=== PATIENT | female | born 1935 | race Caucasian/White ===

== ENCOUNTER → 2017-02-04 | Outpatient (CLI) | payer MEDICARE, OTHER ==
[~2017-02-04] MED LIST: ALBU0.632 IH; DIPH1TAB45 PO; LANS15CA PO; LVT.05T PO; MULT-608 PO; PRD20T PO; SIMV20TA3 PO
--- NOTE | 2017-02-04 16:52 | Diagnostic Imaging Report ---
PROCEDURE: US Carotid Duplex Bilateral. TECHNIQUE: Multiple real-time grayscale images were obtained over the carotid arteries in various projections bilaterally. Additional duplex Doppler and color Doppler images were also obtained. INDICATION: Carotid Bruit. FINDINGS: There are no prior studies available for comparison. There is a moderate amount of hard and soft plaque formation in both carotid bifurcations. The flow velocities failed to show any sign of a hemodynamically significant stenosis, however. The flow velocities are as follows: Mid CCA: Right 66.4, left 71.5. Proximal ICA: Right 41.3, left 47.9. Mid ICA: Right 48.7, left 65.2. Distal ICA: Right 80.1, left 49.1. IC/CC ratio: Right 1.2, left 0.9. Both vertebral arteries are identified and there is antegrade flow bilaterally. IMPRESSION: There is atherosclerotic disease involving both carotid systems, but there is no evidence for a hemodynamically significant stenosis of the common or internal carotid arteries. Dictated by: Dictated on workstation # [id number]
== END ==
LOC: RAD 10:19
PROVIDERS: ATTEND Nurse Practitioner Family
DX: R09.89 Other specified symptoms and signs involving the circulatory and respiratory systems (principal); I65.23 Occlusion and stenosis of bilateral carotid arteries
CPT/HCPCS: 93880

== ENCOUNTER 2017-04-28 13:14 | Outpatient (RCR) | payer MEDICARE, OTHER ==
[2017-04-18 08:36] LABS: BASOPHILS # (AUTO) 0.1 10^3/uL (0.0-0.1); BASOPHILS % (AUTO) 1 % (0-10); EOSINOPHILS # (AUTO) 0.7 10^3/uL (0.0-0.3); EOSINOPHILS % (AUTO) 12 % (0-10); LYMPHOCYTES # (AUTO) 1.1 X 10^3 (1.0-4.0); LYMPHOCYTES % (AUTO) 18 % (12-44); MEAN CORPUSCULAR HEMOGLOBIN 31 PG (25-34); MEAN CORPUSCULAR HGB CONC 33 G/DL (32-36); MEAN CORPUSCULAR VOLUME 93 FL (80-99); MEAN PLATELET VOLUME 10.3 FL (7.4-10.4); MONOCYTES # (AUTO) 0.5 X 10^3 (0.0-1.0); MONOCYTES % (AUTO) 9 % (0-12); NEUTROPHILS # (AUTO) 3.6 X 10^3 (1.8-7.8); NEUTROPHILS % (AUTO) 60 % (42-75); PLATELET COUNT 238 10^3/uL (130-400); RED BLOOD COUNT 4.53 10^6/uL (4.35-5.85); RED CELL DISTRIBUTION WIDTH 12.7 % (10.0-14.5)
[2017-04-18 08:58] LABS: ALANINE AMINOTRANSFERASE 12 U/L (0-55); ALBUMIN 4.4 G/DL (3.2-4.5); ANION GAP 10 MMOL/L (5-14); ASPARTATE AMINO TRANSFERASE 18 U/L (5-34); BILIRUBIN,TOTAL 0.6 MG/DL (0.1-1.0); BLOOD UREA NITROGEN 16 MG/DL (7-18); BUN/CREATININE RATIO 19; CALCIUM 9.3 MG/DL (8.5-10.1); CARBON DIOXIDE 25 MMOL/L (21-32); CHLORIDE 107 MMOL/L (98-107); CREATININE SERUM 0.84 MG/DL (0.60-1.30); GFR ESTIMATED > 60; GLUCOSE 102 MG/DL (70-105); POTASSIUM 3.9 MMOL/L (3.6-5.0); SODIUM 142 MMOL/L (135-145); TOTAL PROTEIN 6.4 G/DL (6.4-8.2)
== END 2017-07-17 | disposition home or self-care (01) ==
LOC: ONC 13:14
PROVIDERS: ATTEND Internal Medicine Hematology & Oncology
DX: Z08 Encounter for follow-up examination after completed treatment for malignant neoplasm (principal); Z85.038 Personal history of other malignant neoplasm of large intestine; N18.3 Chronic kidney disease, stage 3 (moderate); Z79.82 Long term (current) use of aspirin; Z79.899 Other long term (current) drug therapy; Z90.49 Acquired absence of other specified parts of digestive tract
CPT/HCPCS: 36415; 80053; 82378; 85025; 99213

== ENCOUNTER → 2017-05-03 | Outpatient (CLI) | payer MEDICARE, OTHER ==
[~2017-05-03] MED LIST changes: +BARIUM SUSPENSION 2.1% (VANILLA SILQ) 450 ML PO ONE; +CATHETER FLUSH 10 ML SYR IV PRN; +IOHEXOL 350 MG/ML 100 ML (OMNIPAQUE 350) VIAL IV ONE; +NS 100 ML (IVPB) BAG IV ONE
--- NOTE | 2017-05-03 13:11 | Diagnostic Imaging Report ---
PROCEDURE: CT abdomen and pelvis with contrast. TECHNIQUE: Multiple contiguous axial images were obtained through the abdomen and pelvis after administration of intravenous contrast. INDICATION: History of colon cancer. COMPARISON: Exam compared with study from 03/31/2012. FINDINGS: The lung bases are clear. Left hepatic lobe cyst measuring 11 mm is unchanged from prior. No new, solid, or enhancing liver mass. No biliary ductal dilatation. Previous pneumobilia has resolved in the interim. Spleen is negative. There is a small hiatal hernia. There is no adrenal mass. The pancreas is normal. There are no findings of acute pancreatitis, atrophy, fluid collection, or calcifications. There is no abdominal or pelvic mesenteric or retroperitoneal lymphadenopathy. The unobstructed kidneys are normal. There is a small hiatal hernia. The spleen is unremarkable. There is no adrenal mass. There is no ascites. There are postoperative changes to the left lower quadrant abdominal wall without evidence for recurrent hernia. There is profound diverticulosis at the sigmoid colon, but no convincing evidence for acute perisigmoidal edema or acute diverticulitis. There is no abscess or free air. There is no suspicious bone lesion. No evidence for hemorrhage. No free air or pneumatosis. IMPRESSION: Stable benign hepatic cysts. No lymphadenopathy. Severe chronic diverticulosis at the sigmoid. No bowel, biliary, or urinary tract obstruction, and no ascites, fluid collection, or adenopathy. Dictated by: Dictated on workstation # [id number]
== END ==
LOC: RAD 08:42
PROVIDERS: ATTEND Internal Medicine Hematology & Oncology
DX: R10.9 Unspecified abdominal pain (principal); Z85.038 Personal history of other malignant neoplasm of large intestine; K76.89 Other specified diseases of liver
CPT/HCPCS: 74177

== ENCOUNTER → 2017-08-30 | Outpatient (CLI) | payer MEDICARE, OTHER ==
[~2017-08-30] MED LIST changes: -BARIUM SUSPENSION 2.1% (VANILLA SILQ) 450 ML PO ONE; -CATHETER FLUSH 10 ML SYR IV PRN; -IOHEXOL 350 MG/ML 100 ML (OMNIPAQUE 350) VIAL IV ONE; -NS 100 ML (IVPB) BAG IV ONE
== END ==
LOC: RAD 08:30
PROVIDERS: ATTEND Nurse Practitioner Family
DX: M54.5 Low back pain (principal); M25.551 Pain in right hip
CPT/HCPCS: 72100; 73502

== ENCOUNTER → 2017-09-21 | Outpatient (CLI) | payer MEDICARE, OTHER ==
--- NOTE | 2017-09-21 11:59 | Diagnostic Imaging Report ---
EXAMINATION: Upper and lower extremity pressure measurements of ankle/brachial index and pulse volume recording at the ankle. INDICATION: Claudication FINDINGS: The ankle/brachial index on the right side is 1.2, (1.2 PT, and 1.0 DP) and on the left is 1.2 (1.2 PT, and 1.1 DP). Pulse volume recording waveforms no significant abnormality. IMPRESSION: Normal JAMIE, bilaterally. Dictated by: Dictated on workstation # [id number]
== END ==
LOC: RAD 10:45
PROVIDERS: ATTEND Nurse Practitioner Family
DX: I73.9 Peripheral vascular disease, unspecified (principal)
CPT/HCPCS: 93922

== ENCOUNTER 2017-10-18 09:33 | Outpatient (RCR) | payer MEDICARE, OTHER | END 2017-10-18 10:59 | disposition home or self-care (01) | PROVIDERS: ATTEND Nurse Practitioner Family | DX: M47.896 Other spondylosis, lumbar region (principal) ==

== ENCOUNTER 2018-05-25 10:10 | Outpatient (RCR) | payer MEDICARE, OTHER | END 2018-08-23 | disposition home or self-care (01) | LOC: ONC 10:10 | PROVIDERS: ATTEND Internal Medicine Hematology & Oncology | DX: Z08 Encounter for follow-up examination after completed treatment for malignant neoplasm (principal); Z85.038 Personal history of other malignant neoplasm of large intestine; K57.30 Diverticulosis of large intestine without perforation or abscess without bleeding; I12.9 Hypertensive chronic kidney disease with stage 1 through stage 4 chronic kidney disease, or unspecified chronic kidney disease; N18.3 Chronic kidney disease, stage 3 (moderate); E03.9 Hypothyroidism, unspecified; E78.00 Pure hypercholesterolemia, unspecified; Z79.82 Long term (current) use of aspirin; Z79.899 Other long term (current) drug therapy; Z90.49 Acquired absence of other specified parts of digestive tract | CPT/HCPCS: 99213 ==

== ENCOUNTER → 2018-09-28 | Outpatient (CLI) | payer MEDICARE, OTHER ==
--- NOTE | 2018-09-28 18:17 | Diagnostic Imaging Report ---
INDICATION: Left shoulder pain. AP, oblique, and lateral views of the left shoulder are obtained. No fracture or dislocation is seen. There is no acute bony abnormality. There is no overt lytic or blastic lesion. IMPRESSION: Negative left shoulder. Dictated by: Dictated on workstation # [id number]
== END ==
LOC: RAD 16:11
PROVIDERS: ATTEND Nurse Practitioner Family
DX: M25.512 Pain in left shoulder (principal)
CPT/HCPCS: 73030

== ENCOUNTER 2020-05-20 10:34 | Emergency (ER) | payer MEDICARE, OTHER ==
[~2020-05-20] VITALS: Ht 160 cm; Wt 53.9 kg
--- NOTE | 2020-05-20 11:06 | ED Neurological Problem ---
General Chief Complaint: Neurological Problems Stated Complaint: STROKE SYMPTOMS Nursing Triage Note: PT AMB TO ROOM #5 WITH C/O EPISODE OF BILAT LOWER EXTREMITIY WEAKNESS. PT REPORTS 30 MINUTES MUCK BOSS WHILE SEATED ON HER BAR STOOL, SHE ATTEMPTED TO STAND UP ET WAS UNABLE TO WALK. PT STATES, "I COULDNT MOVE MY LEGS." PT REPORTS EPISODE LASTED "A COUPLE SECONDS," ET WAS THEN ABLE TO AMBULATE W/O DIFFICULTY. PT REPORTS AFTER EPISODE SHE EXPERIENCED HEADACHE TO BASE OF SKULL ET BLURRED VISION. PT DENIES BLURRED VISION, PAIN, OR DISCOMFORT AT THIS TIME. INITIAL NIH 1. HX PARALYZED VOCAL CORD. A&OX4. Nursing Sepsis Screen: No Definite Risk Source: patient Exam Limitations: no limitations History of Present Illness Date Seen by Provider: May 20, 2020 Time Seen by Provider: 11:02 Initial Comments To ER with bilateral lower extremity weakness. This began about 10 AM this morning while she was seated on her barstool at home, she attempted to stand up but states her legs didn't want to move. She also had a left occipital headache. The inability to move her legs lasted only a few seconds, she did have some blurred vision left occipital headache and currently reports just general fatigue. No history of this. She does report some numbness to the plantar surface of both feet. Timing/Duration: 1 hour Severity: moderate Associated Symptoms: No confusion, No nausea/vomiting; trouble walking, vision changes, weakness Allergies and Home Medications Allergies Coded Allergies: NKANo Known Allergies (Verified Allergy, Unknown, 03/10/06) Diphenoxylate HCl (Verified Adverse Reaction, Mild, Vomiting, 11/30/11) Iodinated Contrast Media - Oral and (Verified Adverse Reaction, Mild, 11/05/11) atropine sulfate (Verified Adverse Reaction, Mild, Vomiting, 11/30/11) clarithromycin (Verified Adverse Reaction, Mild, 11/05/11) doxycycline (Verified Adverse Reaction, Mild, N/V, 11/05/11) niacin (Verified Adverse Reaction, Mild, rash, 11/05/11) promethazine HCl (Unverified Adverse Reaction, Unknown, MADE HER CRAZY , 05/03/17) Home Medications Albuterol Sulfate 0.63 Mg/3 Ml Vial.neb, 0.83 MG IH PRN, (Reported) Levothyroxine Sodium 50 Mcg Tablet, 1 EACH PO DAILY, (Reported) Multivitamins 1 Tab Tablet, 1 TAB PO DAILY, (Reported) Prednisone 20 Mg Tab, 20 MG PO BID Prescribed by: VERA HERNANDEZ on 04/19/13 0041 Simvastatin 20 Mg Tablet, 20 MG PO HS, (Reported) Patient Home Medication List Home Medication List Reviewed: Yes Review of Systems Review of Systems Constitutional: No chills, No fever Eyes: No Symptoms Reported Ears, Nose, Mouth, Throat: no symptoms reported Respiratory: no symptoms reported Cardiovascular: no symptoms reported Genitourinary: no symptoms reported Musculoskeletal: no symptoms reported Skin: no symptoms reported Psychiatric/Neurological: See HPI, Headache Endocrine: No Symptoms Reported Hematologic/Lymphatic: No Symptoms Reported Past Wbheviu-Tfqcbo-Jnopuz Hx Patient Social History Recent Foreign Travel: No Contact w/Someone Who Travel: No Recent Infectious Disease Expo: No Immunizations Up To Date Date of Pneumonia Vaccine: Aug 25, 2009 Date of Influenza Vaccine: Aug 30, 2011 Past Medical History Reproductive Disorders: No Pancreatitis Colon Physical Exam Vital Signs Vital Signs - First Documented 05/20/20 10:34 Temp 36.5 Pulse 83 Resp 18 B/P (MAP) 168/87 (114) Pulse Ox 98 O2 Delivery Room Air Capillary Refill : NONE Height, Weight, BMI Height: '" Weight: lbs. oz. kg; 21.00 BMI Method:Stated General Appearance: WD/WN, no apparent distress HEENT: PERRL/EOMI, normal ENT inspection Neck: non-tender, full range of motion Respiratory: normal breath sounds, no respiratory distress, no accessory muscle use Cardiovascular: regular rate, rhythm, no murmur Gastrointestinal: normal bowel sounds, non tender, soft Neurologic/Psychiatric: alert, normal mood/affect, oriented x 3 Crainal Nerves: normal hearing, normal speech, PERRL Skin: normal color, warm/dry Stroke Onset of Symptoms Date of Onset of Symptoms: May 20, 2020 Time of Symptom Onset: 10:00 Onset of Symptoms: Yes NIH Stroke Scale Assessment Select: Initial Level of Consciousness: 0=Alert (0), Level of Consciousness-Questions: 0=Answers both month/age (0), LOC Commands: 0=Performs both tasks (0), Gaze: Normal (0), Visual Serra: 0=No visual loss (0), Facial Movement (Facial Paresis): 0=Normal symmetrical mnt (0), Motor Function-Arms Right: 0=No drift (0), Motor Function-Arms Left: 0=No drift (0), Motor Function-Legs Right: 0=No drift (0), Motor Function-Legs Left: 0=No drift (0), Limb Ataxia: 0=Absent (0), Sensory: 0=Normal:no loss (0), Best Language: 0=No aphasia (0), Dysarthria: 0=Normal (0), Extinction & In attention: 0=No abnormality (0), Total: 0 Progress/Results/Core Measures Results/Orders Lab Results Laboratory Tests Test 05/20/20 10:40 05/20/20 11:30 Range/Units White Blood Count 4.7 4.3-11.0 10^3/uL Red Blood Count 4.59 4.35-5.85 10^6/uL Hemoglobin 14.5 11.5-16.0 G/DL Hematocrit 43 35-52 % Mean Corpuscular Volume 93 80-99 FL Mean Corpuscular Hemoglobin 32 25-34 PG Mean Corpuscular Hemoglobin Concent 34 32-36 G/DL Red Cell Distribution Width 13.2 10.0-14.5 % Platelet Count 262 130-400 10^3/uL Mean Platelet Volume 10.5 H 7.4-10.4 FL Neutrophils (%) (Auto) 54 42-75 % Lymphocytes (%) (Auto) 24 12-44 % Monocytes (%) (Auto) 15 H 0-12 % Eosinophils (%) (Auto) 7 0-10 % Basophils (%) (Auto) 1 0-10 % Neutrophils # (Auto) 2.5 1.8-7.8 X 10^3 Lymphocytes # (Auto) 1.1 1.0-4.0 X 10^3 Monocytes # (Auto) 0.7 0.0-1.0 X 10^3 Eosinophils # (Auto) 0.4 H 0.0-0.3 10^3/uL Basophils # (Auto) 0.0 0.0-0.1 10^3/uL Prothrombin Time 12.6 12.2-14.7 SEC INR Comment 0.9 0.8-1.4 Activated Partial Thromboplast Time 29 24-35 SEC D-Dimer 0.54 H 0.00-0.49 UG/ML Sodium Level 140 135-145 MMOL/L Potassium Level 4.0 3.6-5.0 MMOL/L Chloride Level 105 98-107 MMOL/L Carbon Dioxide Level 23 21-32 MMOL/L Anion Gap 12 5-14 MMOL/L Blood Urea Nitrogen 12 7-18 MG/DL Creatinine 0.85 0.60-1.30 MG/DL Estimat Glomerular Filtration Rate > 60 BUN/Creatinine Ratio 14 Glucose Level 98 70-105 MG/DL Calcium Level 9.5 8.5-10.1 MG/DL Corrected Calcium 9.1 8.5-10.1 MG/DL Total Bilirubin 0.6 0.1-1.0 MG/DL Aspartate Amino Transf (AST/SGOT) 20 5-34 U/L Alanine Aminotransferase (ALT/SGPT) 16 0-55 U/L Alkaline Phosphatase 58 40-136 U/L Troponin I < 0.028 <0.028 NG/ML Total Protein 6.8 6.4-8.2 GM/DL Albumin 4.5 3.2-4.5 GM/DL Urine Color YELLOW Urine Clarity SL CLOUDY Urine pH 6.5 5-9 Urine Specific Daggett <=1.005 1.016-1.022 Urine Protein NEGATIVE NEGATIVE Urine Glucose (UA) NEGATIVE NEGATIVE Urine Ketones NEGATIVE NEGATIVE Urine Nitrite NEGATIVE NEGATIVE Urine Bilirubin NEGATIVE NEGATIVE Urine Urobilinogen 0.2 < = 1.0 MG/DL Urine Leukocyte Esterase NEGATIVE NEGATIVE Urine RBC (Auto) NEGATIVE NEGATIVE Urine RBC NONE /HPF Urine WBC RARE /HPF Urine Squamous Epithelial Cells RARE /HPF Urine Crystals PRESENT H /LPF Urine Amorphous Sediment RARE NII URATES H /LPF Urine Bacteria NEGATIVE /HPF Urine Casts NONE /LPF Urine Mucus NEGATIVE /LPF Urine Culture Indicated NO My Orders Orders - GABRIEL WEBER APRN Ct Head/Cervical Spine Wo (05/20/20 11:01) Cbc With Automated Diff (05/20/20 11:01) Protime With Inr (05/20/20 11:01) Partial Thromboplastin Time (05/20/20 11:01) Comprehensive Metabolic Panel (05/20/20 11:01) Fibrin Degradation Products (05/20/20 11:01) Troponin I (05/20/20 11:01) Ua Culture If Indicated (05/20/20 11:01) Chest 1 View, Ap/Pa Only (05/20/20 11:01) Ekg Tracing (05/20/20 11:01) Ed Iv/Invasive Line Start (05/20/20 11:01) Vital Signs Stroke Patient Q15M (05/20/20 11:01) Monitor-Rhythm Ecg Trace Only (05/20/20 11:01) Dysphagia Screening Tool (05/20/20 11:01) Lipid Panel (05/21/20 06:00) Vital Signs/I&O 05/20/20 10:34 Temp 36.5 Pulse 83 Resp 18 B/P (MAP) 168/87 (114) Pulse Ox 98 O2 Delivery Room Air Blood Pressure Mean: 114 Departure Impression Primary Impression: transient bilateral lower extremity weakness Additional Impression: Meningioma Disposition: HOME, SELF-CARE Condition: Stable Departure-Patient Inst. Decision time for Depature: 11:51 Referrals: SONNY PERLA MD (PCP/Family) Primary Care Physician Patient Instructions: Meningioma (DC) Add. Discharge Instructions: You have a small meningioma on the right frontal/parietal aspect of the brain. This is an incidental finding and not the cause of her symptoms. Follow-up with Dr. Perla. All discharge instructions reviewed with patient and/or family. Voiced understanding. Copy Copies To 1: SONNY PERLA MD, PETER J APRN May 20, 2020 11:06
[2020-05-20 11:08] LABS: BASOPHILS % (AUTO) 1 % (0-10); EOSINOPHILS # (AUTO) 0.4 10^3/uL (0.0-0.3); EOSINOPHILS % (AUTO) 7 % (0-10); HEMATOCRIT 43 % (35-52); HEMOGLOBIN 14.5 G/DL (11.5-16.0); LYMPHOCYTES # (AUTO) 1.1 X 10^3 (1.0-4.0); LYMPHOCYTES % (AUTO) 24 % (12-44); MEAN CORPUSCULAR HEMOGLOBIN 32 PG (25-34); MEAN CORPUSCULAR HGB CONC 34 G/DL (32-36); MEAN CORPUSCULAR VOLUME 93 FL (80-99); MEAN PLATELET VOLUME 10.5 FL (7.4-10.4); MONOCYTES # (AUTO) 0.7 X 10^3 (0.0-1.0); MONOCYTES % (AUTO) 15 % (0-12); NEUTROPHILS # (AUTO) 2.5 X 10^3 (1.8-7.8); NEUTROPHILS % (AUTO) 54 % (42-75); PLATELET COUNT 262 10^3/uL (130-400); RED CELL DISTRIBUTION WIDTH 13.2 % (10.0-14.5); WHITE BLOOD COUNT 4.7 10^3/uL (4.3-11.0)
[2020-05-20 11:12] LABS: ALBUMIN 4.5 GM/DL (3.2-4.5); CHLORIDE 105 MMOL/L (98-107)
[2020-05-20 11:13] LABS: SODIUM 140 MMOL/L (135-145)
[2020-05-20 11:14] LABS: CALCIUM 9.5 MG/DL (8.5-10.1); FIBRIN DEGRADATION PRODUCTS 0.54 UG/ML (0.00-0.49); INR 0.9 (0.8-1.4); PROTHROMBIN TIME PATIENT 12.6 SEC (12.2-14.7)
[2020-05-20 11:15] LABS: GLUCOSE 98 MG/DL (70-105); TOTAL PROTEIN 6.8 GM/DL (6.4-8.2)
[2020-05-20 11:16] LABS: CARBON DIOXIDE 23 MMOL/L (21-32)
[2020-05-20 11:17] LABS: BILIRUBIN,TOTAL 0.6 MG/DL (0.1-1.0)
[2020-05-20 11:18] LABS: ALKALINE PHOSPHATASE 58 U/L (40-136); CREATININE SERUM 0.85 MG/DL (0.60-1.30); GFR ESTIMATED > 60
[2020-05-20 11:20] LABS: BUN/CREATININE RATIO 14
[2020-05-20 11:21] LABS: ALANINE AMINOTRANSFERASE 16 U/L (0-55)
[2020-05-20 11:37] LABS: BILIRUBIN,URINE NEGATIVE (NEGATIVE); CLARITY,URINE SL CLOUDY; COLOR,URINE YELLOW; GLUCOSE, URINE (UA) NEGATIVE (NEGATIVE); KETONES,URINE NEGATIVE (NEGATIVE); LEUKOCYTE ESTERASE ,URINE NEGATIVE (NEGATIVE); NITRITE,URINE NEGATIVE (NEGATIVE); PH,URINE 6.5 (5-9); PROTEIN,URINE NEGATIVE (NEGATIVE)
--- NOTE | 2020-05-20 11:45 | Diagnostic Imaging Report ---
Clinical indication: Patient sitting at bar stool this morning and legs would not work. Patient did not fall. Patient is having neck pain at the base of skull and has history of cervical surgery. Exam: Axial Head CT without IV contrast with sagittal and coronal reformations. Axial CT scan of the cervical spine with sagittal and coronal reformations. Auto Exposure Controls were utilized during the CT exam to meet ALARA standards for radiation dose reduction. Comparison: None. Findings: Head CT: There is a 1.5 cm x 1.1 cm x 1.6 cm (AP x Trans x CC) circumscribed dural based mass along the lateral posterior aspect of the right frontal parietal region. There is no adjacent calvarial changes. Otherwise, there is no evidence of acute cerebral infarct, intracranial hemorrhage, or gross mass effect. There is diffuse brain parenchymal volume loss with the frontal lobe affected the most. There is subtle patchy areas of low-attenuation white matter changes involving both cerebral hemispheres, likely representing chronic small vessel ischemic disease. There is normal diaz-white matter distinction. There is no significant midline shift or herniation. There is no evidence of hydrocephalus. The basal cisterns are unremarkable. There is no acute skull fracture. There is a chronic medial left orbital wall deformity with orbital fat extending through the left ethmoid sinus region. Otherwise, the skull, extracranial soft tissue, and remainder of the orbits are unremarkable. The paranasal sinuses are unremarkable. Temporal bones show no significant abnormality. Cervical spine: There is no acute cervical spine fracture. There is grade 1 anterolisthesis C2 on C3, C3 on C4 and C4 on C5 likely degenerative with no pars defects seen. There are postop changes with C5-C6 anterior cervical disc fusion with no hardware complications. There is solid bony bridging/fusion at C5-C6 level. There is no significant bony central canal or neural foramen narrowing. The neck soft tissue structures show no significant abnormality. Visualized upper lung rock show mild bilateral apical pleural parenchymal thickening/scarring. Impression: 1: There is a 1.6 cm high density area which appears to be dural based involving the lateral posterior aspect of the right frontal parietal convexity region. This is suspected to represent a meningioma. If patient has no prior history of having a hemangioma, then MRI of the brain with and without IV contrast would confirm and exclude other etiology. 2: Otherwise, there is no evidence of intracranial hemorrhage or skull fracture. 3: There is no acute cervical spine fracture. There is cervical spine degenerative disease including grade 1 anterolisthesis of C2 on C3, C3 on C4 and C4 on C5. 4: There is C5-C6 anterior cervical disc fusion hardware with no complications. There is solid bony bridging/fusion at C5-C6 level. Dictated by: Dictated on workstation # [id number]
--- NOTE | 2020-05-20 11:46 | Diagnostic Imaging Report ---
INDICATION: Lower extremity weakness. TIME OF EXAM: 11:29 AM Comparison is made with prior chest from 07/21/2016. FINDINGS: Heart size is normal. Lungs are clear. No infiltrates are seen. There is no effusion or pneumothorax. Postop changes lower cervical spine are noted. IMPRESSION: No acute cardiopulmonary process is detected. Dictated by: Dictated on workstation # [id number]
[2020-05-20 11:47] LABS: AMORPHOUS SEDIMENT,UR RARE AMOR URATES /LPF; BACTERIA,URINE NEGATIVE /HPF; SQUAMOUS EPITHELIAL CELL,UR RARE /HPF; WBC,URINE RARE /HPF
[2020-05-20 11:55] VITALS: BP 152/75
== END 2020-05-20 11:55 | disposition home or self-care (01) ==
LOC: EDUNIT# 10:34 → ER 10:35
DX: D32.9 Benign neoplasm of meninges, unspecified (principal); Z91.041 Radiographic dye allergy status; Z88.8 Allergy status to other drugs, medicaments and biological substances; Z88.1 Allergy status to other antibiotic agents; Z79.52 Long term (current) use of systemic steroids
CPT/HCPCS: 36415; 70450; 71045; 72125; 80053; 81000; 84484; 85025; 85379; 85610; 85730; 93005; 93041

== ENCOUNTER → 2020-06-09 | Outpatient (CLI) | payer MEDICARE, OTHER ==
--- NOTE | 2020-06-09 13:03 | Diagnostic Imaging Report ---
PROCEDURE: US carotid duplex, bilateral. TECHNIQUE: Multiple real-time grayscale images were obtained over the carotid arteries in various projections, bilaterally. Additional spectral analysis and color Doppler duplex images were also obtained. INDICATION: Transient ischemic attacks. FINDINGS: There is vgbh-ao-gtrrgyja plaquing in both common carotid arteries and carotid bulbs extending into the proximal internal carotid arteries bilaterally. Velocities are normal bilaterally, however. No velocity elevation or stenosis is seen. Both vertebral arteries show antegrade flow. IMPRESSION: Bilateral carotid plaques. There is no evidence of a hemodynamically significant stenosis. Parameters based on the consensus panel Dillon-Scale and Doppler ultrasound criteria published September 2003, Radiology, Volume 229. DOPPLER (peak systolic velocity M/S Right Left CCA 0.66 0.86 ICA Proximal 0.56 0.58 ICA Mid 0.54 0.79 ICA Distal 0.42 0.68 RATIO 0.9 0.9 ECA 1.03 1.00 VERT 0.46 0.39 Dictated by: Dictated on workstation # [id number]
== END ==
LOC: CARD 11:27
PROVIDERS: ATTEND Nurse Practitioner Family
DX: I08.2 Rheumatic disorders of both aortic and tricuspid valves (principal); G45.9 Transient cerebral ischemic attack, unspecified
CPT/HCPCS: 93306; 93880

== ENCOUNTER → 2020-06-12 | Outpatient (CLI) | payer MEDICARE, OTHER ==
[2020-06-12 09:04] LABS: BASOPHILS % (AUTO) 1 % (0-10); EOSINOPHILS # (AUTO) 0.2 10^3/uL (0.0-0.3); EOSINOPHILS % (AUTO) 3 % (0-10); HEMATOCRIT 41 % (35-52); LYMPHOCYTES # (AUTO) 1.4 X 10^3 (1.0-4.0); LYMPHOCYTES % (AUTO) 22 % (12-44); MEAN CORPUSCULAR HEMOGLOBIN 32 PG (25-34); MEAN CORPUSCULAR HGB CONC 34 G/DL (32-36); MEAN CORPUSCULAR VOLUME 94 FL (80-99); MEAN PLATELET VOLUME 10.2 FL (7.4-10.4); MONOCYTES # (AUTO) 0.7 X 10^3 (0.0-1.0); MONOCYTES % (AUTO) 10 % (0-12); NEUTROPHILS # (AUTO) 4.1 X 10^3 (1.8-7.8); NEUTROPHILS % (AUTO) 64 % (42-75); PLATELET COUNT 241 10^3/uL (130-400); RED CELL DISTRIBUTION WIDTH 12.9 % (10.0-14.5); WHITE BLOOD COUNT 6.4 10^3/uL (4.3-11.0)
[2020-06-12 09:24] LABS: ALBUMIN 4.4 GM/DL (3.2-4.5); BILIRUBIN,TOTAL 0.6 MG/DL (0.1-1.0); CALCIUM 9.4 MG/DL (8.5-10.1); CREATININE SERUM 0.89 MG/DL (0.60-1.30); POTASSIUM 3.9 MMOL/L (3.6-5.0); TOTAL PROTEIN 6.6 GM/DL (6.4-8.2)
== END ==
LOC: EDSTATUS 08-21 08:17 → ONC 08:53
PROVIDERS: ATTEND Internal Medicine Hematology & Oncology
DX: C18.7 Malignant neoplasm of sigmoid colon (principal); Z90.49 Acquired absence of other specified parts of digestive tract; Z87.19 Personal history of other diseases of the digestive system
CPT/HCPCS: 80053; 82378; 85025; G0463; 99213

== ENCOUNTER → 2020-10-03 | Outpatient (CLI) | payer MEDICARE, OTHER ==
[~2020-10-03] MED LIST changes: +ASPI-999 PO; +CLOP75TA28 PO; +CLOP75TA69 PO; +METO50TA7 PO; +RIVA20TA PO
== END ==
LOC: LABNPT 09:01
PROVIDERS: ATTEND Family Medicine
DX: R53.83 Other fatigue (principal); Z20.828 Contact with and (suspected) exposure to other viral communicable diseases
CPT/HCPCS: 87635

== ENCOUNTER 2020-10-07 21:37 | Inpatient (IN) | payer MEDICARE, OTHER ==
[~2020-10-07] VITALS: Ht 157 cm; Wt 60.3 kg
--- NOTE | 2020-10-07 21:50 | NUR ---
Pt denies pain but does report she had onset of palpitations while getting ready for bed. Pt had a cardiac stent placed last wk after she was brought to the ED for fatigue. Pt had an elevated troponin at that time. Pt is A&Ox4, she appears anxious about this stay. Reassurance provided. IV and labs drawn, ECG obtained. Pt on bedside monitor.
--- NOTE | 2020-10-07 21:52 | ED Cardiac General ---
History of Present Illness General Stated Complaint: ELEVATED HEART RATE Source: patient Exam Limitations: no limitations History of Present Illness Date Seen by Provider: Oct 07, 2020 Time Seen by Provider: 21:50 Initial Comments To ER with reports of palpitations that began about 30 minutes to 1 hour ago. Recently admitted hospital atrial fibrillation with rapid regular response, NSTEMI with PCI. Timing/Duration: 1 hour Severity: moderate Activities at Onset: none NTG SL CARE PROFESSIONALS: No ASA po CARE PROFESSIONALS: No Associated Systoms: No Chest Pain Allergies and Home Medications Allergies Coded Allergies: Diphenoxylate HCl (Verified Adverse Reaction, Mild, Vomiting, 11/30/11) Iodinated Contrast Media (Verified Adverse Reaction, Mild, 11/05/11) atropine sulfate (Verified Adverse Reaction, Mild, Vomiting, 11/30/11) clarithromycin (Verified Adverse Reaction, Mild, 11/05/11) doxycycline (Verified Adverse Reaction, Mild, N/V, 11/05/11) niacin (Verified Adverse Reaction, Mild, rash, 11/05/11) promethazine HCl (Unverified Adverse Reaction, Unknown, MADE HER CRAZY , 05/03/17) Home Medications Albuterol Sulfate 2.5 Mg/0.5 Ml Vial.neb, 2.5 MG INH Q4H, (Reported) Clopidogrel Bisulfate 75 Mg Tablet, 75 MG PO DAILY, (Reported) Dicyclomine HCl 20 Mg Tablet, 10 MG PO BID, (Reported) TAKES OF A 20MG TAB Gemfibrozil 600 Mg Tablet, 600 MG PO DAILY, (Reported) Levothyroxine Sodium 50 Mcg Tablet, 75 MCG PO TUE,,FR, (Reported) TAKES 1 & (50MG) TAB ON TUE,TUE,FR TAKES 1 TAB ON SUN,TUE,THUR,SAT Levothyroxine Sodium 50 Mcg Tablet, 50 MCG PO SUN,TUE,ALEXIS,SAT, (Reported) TAKES 1 & (50MG) TAB ON TUE,TUE,FR TAKES 1 TAB ON SUN,TUE,THUR,SAT Montelukast Sodium 10 Mg Tablet, 10 MG PO DAILY, (Reported) Pantoprazole Sodium 40 Mg Tablet.dr, 40 MG PO BID, (Reported) LAST FILLED 04-04-2020 #180/90 DAY SUPPLY Rivaroxaban 20 Mg Tablet, 20 MG PO 1700 W/FOOD, (Reported) Patient Home Medication List Home Medication List Reviewed: Yes Review of Systems Review of Systems Constitutional: see HPI EENTM: No Symptoms Reported Respiratory: No Symptoms Reported Cardiovascular: See HPI, Irregular Heart Rate, Palpitations Gastrointestinal: No Symptoms Reported Genitourinary: No Symptoms Reported Musculoskeletal: no symptoms reported Skin: no symptoms reported Psychiatric/Neurological: No Symptoms Reported Endocrine: No Symptoms Reported Past Wmgxizk-Mjxzqv-Vcayfq Hx Patient Social History 2nd Hand Smoke Exposure: No Recent Foreign Travel: No Contact w/Someone Who Travel: No Recent Hopitalizations: No Immunizations Up To Date Date of Pneumonia Vaccine: Aug 25, 2009 Date of Influenza Vaccine: Oct 09, 2019 Past Medical History Surgeries: Yes (hystercectomy, colon resections, shoulder and neck surg) Abdominal, Hysterectomy, Orthopedic, Thyroidectomy Respiratory: No Cardiac: Yes High Cholesterol Neurological: No Reproductive Disorders: No Genitourinary: No Gastrointestinal: Yes Pancreatitis Musculoskeletal: No Endocrine: Yes Hypothyroidsim Cancer: Yes Colon Psychosocial: No Integumentary: No Blood Disorders: No Family Medical History No Pertinent Family Hx Physical Exam Vital Signs Vital Signs - First Documented 10/07/20 21:40 Temp 36.0 Pulse 143 Resp 20 B/P (MAP) 149/89 (109) Pulse Ox 98 O2 Delivery Room Air Capillary Refill : Height, Weight, BMI Height: '" Weight: lbs. oz. kg; 21.00 BMI Method:Stated General Appearance: No Apparent Distress, WD/WN Respiratory: No Accessory Muscle Use, No Respiratory Distress Cardiovascular: Irregularly Irregular, Tachycardia (HR irregular narrow complex rate of 150s) Gastrointestinal: Non Tender, Soft Extremity: Normal Capillary Refill, Normal Inspection Neurologic/Psychiatric: Alert, Oriented x3 Skin: Normal Color, Warm/Dry Progress/Results/Core Measures Results/Orders Lab Results Laboratory Tests Test 10/07/20 21:45 Range/Units White Blood Count 8.1 4.3-11.0 10^3/uL Red Blood Count 4.15 3.80-5.11 10^6/uL Hemoglobin 12.8 11.5-16.0 g/dL Hematocrit 39 35-52 % Mean Corpuscular Volume 93 80-99 fL Mean Corpuscular Hemoglobin 31 25-34 pg Mean Corpuscular Hemoglobin Concent 33 32-36 g/dL Red Cell Distribution Width 13.2 10.0-14.5 % Platelet Count 379 130-400 10^3/uL Mean Platelet Volume 10.5 9.0-12.2 fL Immature Granulocyte % (Auto) 1 % Neutrophils (%) (Auto) 57 42-75 % Lymphocytes (%) (Auto) 30 12-44 % Monocytes (%) (Auto) 8 0-12 % Eosinophils (%) (Auto) 3 0-10 % Basophils (%) (Auto) 1 0-10 % Neutrophils # (Auto) 4.6 1.8-7.8 10^3/uL Lymphocytes # (Auto) 2.5 1.0-4.0 10^3/uL Monocytes # (Auto) 0.7 0.0-1.0 10^3/uL Eosinophils # (Auto) 0.3 0.0-0.3 10^3/uL Basophils # (Auto) 0.1 0.0-0.1 10^3/uL Immature Granulocyte # (Auto) 0.0 0.0-0.1 10^3/uL Prothrombin Time 27.3 H 12.2-14.7 SEC INR Comment 2.5 H 0.8-1.4 Activated Partial Thromboplast Time 44 H 24-35 SEC Sodium Level 142 135-145 MMOL/L Potassium Level 3.9 3.6-5.0 MMOL/L Chloride Level 106 98-107 MMOL/L Carbon Dioxide Level 21 21-32 MMOL/L Anion Gap 15 H 5-14 MMOL/L Blood Urea Nitrogen 17 7-18 MG/DL Creatinine 1.27 0.60-1.30 MG/DL Estimat Glomerular Filtration Rate 40 BUN/Creatinine Ratio 13 Glucose Level 108 H 70-105 MG/DL Calcium Level 9.2 8.5-10.1 MG/DL Corrected Calcium 9.2 8.5-10.1 MG/DL Magnesium Level 2.0 1.6-2.4 MG/DL Total Bilirubin 0.7 0.1-1.0 MG/DL Aspartate Amino Transf (AST/SGOT) 44 H 5-34 U/L Alanine Aminotransferase (ALT/SGPT) 151 H 0-55 U/L Alkaline Phosphatase 77 40-136 U/L Myoglobin 27.0 10.0-92.0 NG/ML Troponin I 1.769 *H <0.028 NG/ML Total Protein 6.6 6.4-8.2 GM/DL Albumin 4.0 3.2-4.5 GM/DL My Orders Orders - GABRIEL WEBER APRN Ns Iv 500 Ml (Sodium Chloride 0.9%) (10/07/20 22:00) Metoprolol Tartrate Injection (Lopressor (10/07/20 22:00) Diltiazem Drip Pre-Mix (Cardizem Drip Pr (10/07/20 22:00) Metoprolol Tartrate Injection (Lopressor (10/07/20 22:15) Vital Signs/I&O 10/07/20 21:40 Temp 36.0 Pulse 143 Resp 20 B/P (MAP) 149/89 (109) Pulse Ox 98 O2 Delivery Room Air 10/08/20 00:00 Intake Total 500 ml Balance 500 ml Departure Impression Primary Impression: Atrial fibrillation with RVR Disposition: ADMITTED INPATIENT Condition: Stable Admissions Decision to Admit Reason: Admit from ER (General) Decision to Admit/Date: Oct 07, 2020 Time/Decision to Admit Time: 22:50 Departure-Patient Inst. Referrals: SONNY TAO MD (PCP/Family) Primary Care Physician GABRIEL WEBER APRN Oct 07, 2020 21:52
[2020-10-07] MEDS ORDERED: meTOprolol 5 MG/5 ML (LOPRESSOR) VIAL IV ONE ×2 (22:00→22:15)
[2020-10-07] MEDS ORDERED: NS IV 500 ML 500 ML IV SCH (22:00)
[2020-10-07] MEDS ORDERED: dilTIAZem DRIP PRE-MIX 125 ML IV SCH (22:00)
[2020-10-07 22:12] LABS: BASOPHILS # (AUTO) 0.1 10^3/uL (0.0-0.1); BASOPHILS % (AUTO) 1 % (0-10); EOSINOPHILS # (AUTO) 0.3 10^3/uL (0.0-0.3); EOSINOPHILS % (AUTO) 3 % (0-10); HEMATOCRIT 39 % (35-52); HEMOGLOBIN 12.8 g/dL (11.5-16.0); LYMPHOCYTES # (AUTO) 2.5 10^3/uL (1.0-4.0); LYMPHOCYTES % (AUTO) 30 % (12-44); MEAN CORPUSCULAR HEMOGLOBIN 31 pg (25-34); MEAN CORPUSCULAR HGB CONC 33 g/dL (32-36); MEAN CORPUSCULAR VOLUME 93 fL (80-99); MEAN PLATELET VOLUME 10.5 fL (9.0-12.2); MONOCYTES # (AUTO) 0.7 10^3/uL (0.0-1.0); MONOCYTES % (AUTO) 8 % (0-12); NEUTROPHILS # (AUTO) 4.6 10^3/uL (1.8-7.8); NEUTROPHILS % (AUTO) 57 % (42-75); PLATELET COUNT 379 10^3/uL (130-400); WHITE BLOOD COUNT 8.1 10^3/uL (4.3-11.0)
[2020-10-07 22:26] LABS: POTASSIUM 3.9 MMOL/L (3.6-5.0)
[2020-10-07 22:27] LABS: CALCIUM 9.2 MG/DL (8.5-10.1)
[2020-10-07 22:28] LABS: TOTAL PROTEIN 6.6 GM/DL (6.4-8.2)
--- NOTE | 2020-10-07 22:28 | NUR ---
Radiology at bedside for x-ray.
[2020-10-07 22:30] LABS: BILIRUBIN,TOTAL 0.7 MG/DL (0.1-1.0)
[2020-10-07 22:32] LABS: CREATININE SERUM 1.27 MG/DL (0.60-1.30)
[2020-10-07 22:46] LABS: INR 2.5 (0.8-1.4); PROTHROMBIN TIME PATIENT 27.3 SEC (12.2-14.7)
--- NOTE | 2020-10-08 | NUR ---
Pt admitted to room 510-1, with an admitting diagnosis of A-FIB with RVR, on 10/08/20 from [facility] via wheelchair, accompanied by staff. STEPHEN JOHNSON introduced to surroundings, call light, bed controls, phone, TV, temperature control, lights, meal times, smoking policy, visitor policy, side rail policy, bathrooms and showers. Patient Rights given to patient in the handbook. STEPHEN JOHNSON verbalizes understanding that [facility] is not responsible for the loss or damage to any personal effects or valuables that are kept in the patients possession during their hospitalization. STEPHEN JOHNSON verbalizes understanding of Interdisciplinary Patient Education. Patient was informed about the Rapid Response Team and its purpose.
[2020-10-08] MEDS ORDERED: dilTIAZem DRIP 125 MG/125 ML DRIP IV SCH (00:45)
[2020-10-08] MEDS: LACTATED RINGERS 1,000 ML IV SCH ×2 (00:45→11:16)
[2020-10-08 04:41] LABS: BASOPHILS # (AUTO) 0.1 10^3/uL (0.0-0.1); BASOPHILS % (AUTO) 1 % (0-10); EOSINOPHILS # (AUTO) 0.3 10^3/uL (0.0-0.3); EOSINOPHILS % (AUTO) 3 % (0-10); HEMATOCRIT 35 % (35-52); HEMOGLOBIN 11.4 g/dL (11.5-16.0); LYMPHOCYTES # (AUTO) 2.2 10^3/uL (1.0-4.0); LYMPHOCYTES % (AUTO) 29 % (12-44); MEAN CORPUSCULAR HEMOGLOBIN 30 pg (25-34); MEAN CORPUSCULAR HGB CONC 32 g/dL (32-36); MEAN CORPUSCULAR VOLUME 93 fL (80-99); MEAN PLATELET VOLUME 10.6 fL (9.0-12.2); MONOCYTES # (AUTO) 0.7 10^3/uL (0.0-1.0); MONOCYTES % (AUTO) 10 % (0-12); NEUTROPHILS # (AUTO) 4.3 10^3/uL (1.8-7.8); NEUTROPHILS % (AUTO) 57 % (42-75); PLATELET COUNT 374 10^3/uL (130-400); WHITE BLOOD COUNT 7.5 10^3/uL (4.3-11.0)
[2020-10-08 04:59] LABS: POTASSIUM 4.4 MMOL/L (3.6-5.0)
[2020-10-08 05:00] LABS: ALBUMIN 3.5 GM/DL (3.2-4.5)
[2020-10-08 05:01] LABS: CALCIUM 8.6 MG/DL (8.5-10.1)
[2020-10-08 05:02] LABS: TOTAL PROTEIN 5.9 GM/DL (6.4-8.2)
[2020-10-08 05:04] LABS: BILIRUBIN,TOTAL 0.8 MG/DL (0.1-1.0)
[2020-10-08 05:05] LABS: PHOSPHORUS 3.4 MG/DL (2.3-4.7)
[2020-10-08 05:06] LABS: CREATININE SERUM 0.96 MG/DL (0.60-1.30)
--- NOTE | 2020-10-08 05:39 | Diagnostic Imaging Report ---
INDICATION: Palpitations. Chest pain. COMPARISON: 10/05/2020 FINDINGS: Single frontal radiographic view of the chest was obtained and demonstrates blunting of the bilateral lateral costophrenic angles suggestive of small effusions. Cardiac silhouette is borderline prominent. Pulmonary vasculature, however, is within normal limits. Lungs are otherwise clear. There is no pneumothorax. Osseous structures show no gross acute abnormalities. IMPRESSION: 1. Probable small bibasilar effusions, left greater than right. 2. Borderline enlargement of the cardiac silhouette, which may be exaggerated by portable technique. There is, however, no evidence of failure. Dictated by: Dictated on workstation # [id number]
--- NOTE | 2020-10-08 08:34 | History & Physicial ---
History of Present Illness History of Present Illness Date of Admission Oct 07, 2020 at 22:43 I consulted on this patient on 10/08/20 08:34 Attending Physician Sonny Perla MD Admitting Physician Sonny Perla MD Consult Allergies and Home Medications Allergies Coded Allergies: Diphenoxylate HCl (Verified Adverse Reaction, Mild, Vomiting, 11/30/11) Iodinated Contrast Media (Verified Adverse Reaction, Mild, 11/05/11) atropine sulfate (Verified Adverse Reaction, Mild, Vomiting, 11/30/11) clarithromycin (Verified Adverse Reaction, Mild, 11/05/11) doxycycline (Verified Adverse Reaction, Mild, N/V, 11/05/11) niacin (Verified Adverse Reaction, Mild, rash, 11/05/11) promethazine HCl (Unverified Adverse Reaction, Unknown, MADE HER CRAZY , 05/03/17) Home Medications Albuterol Sulfate 0.63 Mg/3 Ml Vial.neb, 0.83 MG IH PRN, (Reported) Clopidogrel Bisulfate 75 Mg Tablet, 75 MG PO DAILY Prescribed by: BONNY JOHNSON on 10/05/20 1357 Levothyroxine Sodium 50 Mcg Tablet, 1 EACH PO DAILY, (Reported) Multivitamins 1 Tab Tablet, 1 TAB PO DAILY, (Reported) Rivaroxaban 20 Mg Tablet, 20 MG PO DAILY TAKE MEDICATION DAILY AT 5:00 PM WITH FOOD Prescribed by: BONNY JOHNSON on 10/05/20 1146 Simvastatin 20 Mg Tablet, 20 MG PO HS, (Reported) Past [id number]-[id number] Hx Patient Social History Alcohol Use: Denies Use Recreational Drug Use: No Smoking Status: Never a Smoker 2nd Hand Smoke Exposure: No Recent Foreign Travel: No Contact w/other who traveled: No Recent Hopitalizations: No Recent Infectious Disease Expo: No Immunizations Up To Date Date of Pneumonia Vaccine: Aug 04, 2017 Date of Influenza Vaccine: Aug 28, 2020 Surgeries Yes (hystercectomy, colon resections, shoulder and neck surg) Abdominal, Hysterectomy, Orthopedic, Thyroidectomy Respiratory No Cardiovascular Yes High Cholesterol Neurological No Reproductive System Hx Reproductive Disorders: No Genitourinary No Gastrointestinal Yes Pancreatitis Musculoskeletal No Endocrine History of Endocrine Disorders: Yes Endocrine Disorders: Hypothyroidsim Cancer Yes Colon Psychosocial History of Psychiatric Problem: No Integumentary History of Skin or Integumenta: No Blood Transfusions History of Blood Disorders: No Family Medical History Significant Family History: No Pertinent Family Hx Physical Exam Vital Signs Vital Signs - First Documented 10/07/20 21:40 Temp 36.0 Pulse 143 Resp 20 B/P (MAP) 149/89 (109) Pulse Ox 98 O2 Delivery Room Air Capillary Refill : Less Than 3 Seconds Height, Weight, BMI Height: '" Weight: lbs. oz. kg; 24.00 BMI Method:Stated Clinical Quality Measures AMI/AHF: ASA po Prior to arrival: No DVT/VTE Risk/Contraindication: Risk Factor Score Per Nursin RFS Level Per Nursing on Admit: 4+=Very High SONNY PERLA MD Oct 08, 2020 08:34
--- NOTE | 2020-10-08 08:43 | Consultation-Cardiology ---
HPI-Cardiology Cardiology Consultation Date of Consultation 10/08/20 Date of Admission Time Seen by Provider: 08:37 Indication: Afib with RVR HPI Patient is an 85 y/o female with hx of HLP, hypothyroidism. Recent hospitalization with NSTEMI and AFib, underwent LHC with stent to the OM on 10/04/2020. Started on Xarelto and Plavix and was discharged home. Came in the the ER with palpitations, was in Afib with RVR. Currently in SR. Denies any chest pain, dypsnea, dizziness or lightheadedness. Noted to be borderline hypotensive. Home Medications & Allergies Allergies: Coded Allergies: Diphenoxylate HCl (Verified Adverse Reaction, Mild, Vomiting, 11/30/11) Iodinated Contrast Media (Verified Adverse Reaction, Mild, 11/05/11) atropine sulfate (Verified Adverse Reaction, Mild, Vomiting, 11/30/11) clarithromycin (Verified Adverse Reaction, Mild, 11/05/11) doxycycline (Verified Adverse Reaction, Mild, N/V, 11/05/11) niacin (Verified Adverse Reaction, Mild, rash, 11/05/11) promethazine HCl (Unverified Adverse Reaction, Unknown, MADE HER CRAZY , 05/03/17) Home Medication List Reviewed: Yes [id number] Hx Patient Social History Marital Status: Alcohol Use: Denies Use Recreational Drug Use: No Smoking Status: Never a Smoker 2nd Hand Smoke Exposure: No Recent Foreign Travel: No Recent Infectious Disease Expo: No Recent Hopitalizations: No Immunizations Up To Date Date of Pneumonia Vaccine: Aug 04, 2017 Date of Influenza Vaccine: Aug 28, 2020 Past Medical History Hypothyroidism, Anxiety, HLP Family Medical History Significant Family History: No Pertinent Family Hx Review of Systems-General Review of Systems Constitutional: see HPI; No diaphoresis, No malaise, No weakness EENTM: see HPI; No blurred vision, No double vision Respiratory: see HPI; No cough, No dyspnea on exertion Cardiovascular: see HPI; No chest pain, No edema; Hx of Intervention, palpitations; No syncope, No vascular heart diseas Gastrointestinal: see HPI Genitourinary: No dysuria, No frequency Musculoskeletal: no symptoms reported Skin: no symptoms reported Psychiatric/Neurological: No Symptoms Reported Reviewed Test Results Reviewed Test Results Lab Laboratory Tests 10/07/20 21:45: White Blood Count 8.1, Red Blood Count 4.15, Hemoglobin 12.8, Hematocrit 39, Mean Corpuscular Volume 93, Mean Corpuscular Hemoglobin 31, Mean Corpuscular Hemoglobin Concent 33, Red Cell Distribution Width 13.2, Platelet Count 379, Mean Platelet Volume 10.5, Immature Granulocyte % (Auto) 1, Neutrophils (%) (Auto) 57, Lymphocytes (%) (Auto) 30, Monocytes (%) (Auto) 8, Eosinophils (%) (Auto) 3, Basophils (%) (Auto) 1, Neutrophils # (Auto) 4.6, Lymphocytes # (Auto) 2.5, Monocytes # (Auto) 0.7, Eosinophils # (Auto) 0.3, Basophils # (Auto) 0.1, Immature Granulocyte # (Auto) 0.0, Prothrombin Time 27.3H, INR Comment 2.5H, Activated Partial Thromboplast Time 44H, Sodium Level 142, Potassium Level 3.9, Chloride Level 106, Carbon Dioxide Level 21, Anion Gap 15H, Blood Urea Nitrogen 17, Creatinine 1.27, Estimat Glomerular Filtration Rate 40, BUN/Creatinine Ratio 13, Glucose Level 108H, Calcium Level 9.2, Corrected Calcium 9.2, Magnesium Level 2.0, Total Bilirubin 0.7, Aspartate Amino Transf (AST/SGOT) 44H, Alanine Aminotransferase (ALT/SGPT) 151H, Alkaline Phosphatase 77, Myoglobin 27.0, Troponin I 1.769*H, Total Protein 6.6, Albumin 4.0 10/08/20 04:10: White Blood Count 7.5, Red Blood Count 3.77L, Hemoglobin 11.4L, Hematocrit 35, Mean Corpuscular Volume 93, Mean Corpuscular Hemoglobin 30, Mean Corpuscular Hemoglobin Concent 32, Red Cell Distribution Width 13.4, Platelet Count 374, Mean Platelet Volume 10.6, Immature Granulocyte % (Auto) 1, Neutrophils (%) (Auto) 57, Lymphocytes (%) (Auto) 29, Monocytes (%) (Auto) 10, Eosinophils (%) (Auto) 3, Basophils (%) (Auto) 1, Neutrophils # (Auto) 4.3, Lymphocytes # (Auto) 2.2, Monocytes # (Auto) 0.7, Eosinophils # (Auto) 0.3, Basophils # (Auto) 0.1, Immature Granulocyte # (Auto) 0.1, Sodium Level 141, Potassium Level 4.4, Chloride Level 108H, Carbon Dioxide Level 18L, Anion Gap 15H, Blood Urea Nitrogen 15, Creatinine 0.96, Estimat Glomerular Filtration Rate 55, BUN/Creatinine Ratio 16, Glucose Level 114H, Calcium Level 8.6, Corrected Calcium 9.0, Magnesium Level 2.0, Total Bilirubin 0.8, Aspartate Amino Transf (AST/SGOT) 44H, Alanine Aminotransferase (ALT/SGPT) 124H, Alkaline Phosphatase 59, Total Protein 5.9L, Albumin 3.5, Phosphorus Level 3.4, Triglycerides Level 118, Cholesterol Level 203H, LDL Cholesterol Direct 159H, VLDL Cholesterol 24, HDL Cholesterol 39L ECG Impression ECG Initial ECG Rhythm: A Fib/Flutter Initial ECG Impression: Atrial Fibrillation w/RVR Physical Exam Physical Exam Vital Signs Vital Signs - First Documented 10/07/20 21:40 Temp 36.0 Pulse 143 Resp 20 B/P (MAP) 149/89 (109) Pulse Ox 98 O2 Delivery Room Air Capillary Refill : Less Than 3 Seconds Height, Weight, BMI Height: '" Weight: lbs. oz. kg; 24.00 BMI Method:Stated General Appearance: No Apparent Distress, WD/WN HEENT: PERRL/EOMI Respiratory: No Accessory Muscle Use, No Respiratory Distress Cardiovascular: Regular Rate, Rhythm, No JVD, No Murmur Gastrointestinal: Non Tender, Soft Back: No CVA Tenderness Extremity: Normal Capillary Refill, Normal Inspection Neurologic/Psychiatric: Alert, Oriented x3 Skin: Normal Color, Warm/Dry A/P-Cardiology Admission Diagnosis AFib with RVR CAD HLP Hypothyroidism Assessment/Plan Afib with RVR, started on Cardizem gtt, converted to SR. Patient is currently in SR, hypotensive at this time. I will d/c Cardizem CAD, NSTEMI with stent to the OM on 10/04/2020. Maintained on Xarelto and Plavix. troponin mildly elevated secondary d/t recent CT HLP- maintained on statin Hypotension, I will d/c cardizem gtt, give IV fluid. Continue to monitor Hypothyroidism, management per PCP Anxiety Thank you for allowing us to participate in the management of Ms. Mitchell. This is Justyna Oconnell PA-C, as a scribe for Dr. Ruelas. Patient was seen and evaluated with Justyna, examination performed, management plan was discussed, agree with the current scribed note, I made few changes to the note using Italic font Patient was seen at bedside laying down comfortably, back to sinus rhythm at this point. Blood pressure is better after receiving a bolus of normal saline. I will test her with 12.5 mg of metoprolol and planning to place her on Toprol- XL 25 mg daily in the evening if she can tolerate the dose. Continue on oral anticoagulation for now and continue to monitor Monitor blood pressure Planning for discharge in the morning if she continued to be stable Clinical Quality Measures AMI/AHF: ASA po Prior to arrival: No DVT/VTE Risk/Contraindication: Risk Factor Score Per Nursin RFS Level Per Nursing on Admit: 4+=Very High JUSTYNA MAZARIEGOS Oct 08, 2020 8:42 am JOI RUELAS MD Oct 08, 2020 12:44 pm
[2020-10-08] MEDS ORDERED: MONT10TA26 PO (10:57)
[2020-10-08] MEDS ORDERED: GEMF600T8 PO (10:57)
[2020-10-08] MEDS ORDERED: LEVO50TA6 PO ×2 (10:57)
[2020-10-08] MEDS ORDERED: ALB0.5V INH (10:57)
[2020-10-08] MEDS ORDERED: CLOP75TA28 PO (10:57)
[2020-10-08] MEDS ORDERED: DICY20TA10 PO (10:57)
[2020-10-08] MEDS ORDERED: RIVA20TA PO (10:57)
[2020-10-08] MEDS ORDERED: PANT40TA52 PO (11:09)
[2020-10-08] MEDS ORDERED: meTOprolol TARTRATE 25 MG (LOPRESSOR) TABLET ONE (11:12)
[2020-10-08] MEDS: CLOPIDOGREL 75 MG (PLAVIX) TABLET PO SCH (12:24)
--- NOTE | 2020-10-08 12:33 | NUR ---
SPOKE WITH THE PT (ALSO CALLED HER DAUGHTER GUNNER) WENT THRU THE EXT MED HISTORY, AND CALLED [facility] AND [facility] TO COMPLETE THE MED REC 10-05-2020 XARELTO 20MG #30/30DS 04-04-2020 PANTOPRAZOLE 40MG #180/90DS- I DID DOCUMENT THE PAST DUE FILL ON THE MED REC ON 10-03-2020 THE EXT MED HISTORY SHOWS AZITHROMYCIN 250MG #6/5DS AND DEXAMETHASONE 6MG #10/10DS WERE FILLED AT [facility] (SENT FROM [facility]), HOWEVER PT WAS NOT AWARE OF THESE MEDICATIONS. I CALLED HER DAUGHTER GUNNER (SHE NORMALLY PICKS UP THE PTS MEDS FROM THE PHARM) AND SHE DENIES PICKING THEM UP FROM [facility]. APPARENTLY THE PT WENT TO URGENT CARE TO GET TESTED FOR COVID (THE TEST WAS NEGATIVE) AND THE PROVIDER DECIDED TO CALL AN AMBULANCE AND SHE WAS ADMITTED HERE. FOR THESE REASONS I DID NOT INCLUDE THE ABOVE MEDS ON THE MED REC
[2020-10-08] MEDS ORDERED: RIVAROXABAN 15 MG TABLET (XARELTO) PO SCH (17:00)
[2020-10-08] MEDS: meTOprolol TARTRATE 25 MG (LOPRESSOR) TABLET PO SCH (21:10)
[2020-10-09 03:36] LABS: BASOPHILS # (AUTO) 0.1 10^3/uL (0.0-0.1); BASOPHILS % (AUTO) 1 % (0-10); EOSINOPHILS # (AUTO) 0.3 10^3/uL (0.0-0.3); EOSINOPHILS % (AUTO) 4 % (0-10); HEMATOCRIT 35 % (35-52); HEMOGLOBIN 11.5 g/dL (11.5-16.0); LYMPHOCYTES # (AUTO) 2.5 10^3/uL (1.0-4.0); LYMPHOCYTES % (AUTO) 40 % (12-44); MEAN CORPUSCULAR HEMOGLOBIN 31 pg (25-34); MEAN CORPUSCULAR HGB CONC 33 g/dL (32-36); MEAN CORPUSCULAR VOLUME 94 fL (80-99); MEAN PLATELET VOLUME 10.5 fL (9.0-12.2); MONOCYTES # (AUTO) 0.6 10^3/uL (0.0-1.0); MONOCYTES % (AUTO) 10 % (0-12); NEUTROPHILS # (AUTO) 2.8 10^3/uL (1.8-7.8); NEUTROPHILS % (AUTO) 44 % (42-75); PLATELET COUNT 365 10^3/uL (130-400); WHITE BLOOD COUNT 6.2 10^3/uL (4.3-11.0)
[2020-10-09 04:05] LABS: POTASSIUM 4.7 MMOL/L (3.6-5.0)
[2020-10-09 04:06] LABS: CALCIUM 8.8 MG/DL (8.5-10.1)
[2020-10-09 04:10] LABS: PHOSPHORUS 3.8 MG/DL (2.3-4.7)
[2020-10-09 04:13] LABS: MAGNESIUM 2.1 MG/DL (1.6-2.4)
[2020-10-09] MEDS: LACTATED RINGERS 1,000 ML IV SCH (06:32)
--- NOTE | 2020-10-09 07:46 | Diagnostic Imaging Report ---
Reason for examination: Atrial fibrillation with rapid ventricular rate. Upright AP portable chest was obtained and compared to 10/07/2020. Cardiac silhouette is within normal limits for size and stable from the prior exam. No mediastinal widening. Patchy atelectasis versus infiltrate in the left lower lobe. This is about the same as the prior exam. There may be a trace of effusion on the left side today as well. No heart failure. IMPRESSION: 1. Patchy left lower lobe atelectasis versus infiltrate and possibly a small left pleural effusion. Dictated by: Dictated on workstation # [id number]
[2020-10-09] MEDS: CLOPIDOGREL 75 MG (PLAVIX) TABLET PO SCH (07:58)
[2020-10-09] MEDS: meTOprolol TARTRATE 25 MG (LOPRESSOR) TABLET PO SCH (07:59)
--- NOTE | 2020-10-09 08:35 | Cardiology Progress Note ---
Subjective Date Seen by Provider: Oct 09, 2020 Time Seen by Provider: 08:15 Subjective/Events-last exam Patient sitting up in chair, denies any chest pain or dyspnea. Review of Systems General: No Chills, No Night Sweats, No Fatigue, No Malaise, No Appetite, No Other HEENT: No Head Aches, No Visual Changes, No Eye Pain, No Ear Pain, No Dysphasia, No Sinus Congestion, No Post Nasal Drip, No Sore Throat, No Other Pulmonary: No Dyspnea, No Cough, No Pleuritic Chest Pain, No Other Cardiovascular: No: Chest Pain, Palpitations, Orthopnea, Paroxysmal Noc. Dyspnea, Edema, Lt Headedness, Other Objective-Cardiology Exam Last Set of Vital Signs Vital Signs 10/09/20 10/09/20 07:16 08:00 Temp 36.5 Pulse 86 Resp 12 B/P (MAP) 136/68 Pulse Ox 97 O2 Delivery Room Air Capillary Refill : Less Than 3 Seconds I&O Intake and Output 10/09/20 00:00 Intake Total 1975 ml Balance 1975 ml Intake Oral 1975 ml # Voids 9 # Bowel Movements 1 Daily Weight Change Unsure/Unresponsive General: Alert, Oriented X3, Cooperative HEENT: Atraumatic, PERRLA Neck: Supple, No JVD, No Thyromegaly Lungs: Clear to Auscultation, Normal Air Movement Heart: Regular Rate, Normal S1, Normal S2, No Murmurs Abdomen: Normal Bowel Sounds, Soft, No Tenderness, No Hepatosplenomegaly, No Masses Extremities: No Clubbing, No Cyanosis, No Edema, Normal Pulses, No Tenderness/Swelling Skin: No Rashes, No Breakdown, No Significant Lesion Neuro: Normal Gait, Normal Speech, Strength at 5/5 X4 Ext, Normal Tone, Sensation Intact Psych/Mental Status: Mental Status NL, Mood NL Results Lab Laboratory Tests 10/09/20 03:20 A/P-Cardiology Admission Diagnosis AFib with RVR CAD HLP Hypothyroidism Assessment/Plan Afib with RVR, started on Cardizem gtt, converted to SR. Started on Lopressor and Amiodarone. Continue to monitor. CAD, NSTEMI with stent to the OM on 10/04/2020. Maintained on Xarelto and Plavix. troponin mildly elevated secondary d/t recent AL, continue to monitor. HLP- maintained on statin Hypotension, improved, tolerating Lopressor well, continue to monitor. Mild elevation in liver enzymes, asymptomatic, I am starting amiodarone, continue to monitor liver enzymes and her tolerance and response to amiodarone Hypothyroidism, management per PCP Right groin small hematoma vs pseudoaneurysm, I will evaluate R groin US Anxiety Patient was seen and evaluated with Justyna, examination performed, management plan was discussed, agree with the current scribed note, I made few changes to the note using Italic font Patient is back to sinus rhythm and feeling better. No new complaint Had mild elevation in liver enzymes, I am starting amiodarone and will continue to monitor her tolerance and response as an outpatient Okay for discharge from cardiology standpoint Clinical Quality Measures AMI/AHF: ASA po Prior to arrival: No DVT/VTE Risk/Contraindication: Risk Factor Score Per Nursin RFS Level Per Nursing on Admit: 4+=Very High JUSTYNA MAZARIEGOS Oct 09, 2020 8:35 am JOI HUNTER MD Oct 09, 2020 8:51 am
[2020-10-09 08:56] LABS: ALBUMIN 3.4 GM/DL (3.2-4.5); BILIRUBIN,DIRECT 0.2 MG/DL (0.0-0.3); BILIRUBIN,INDIRECT 0.6 MG/DL; BILIRUBIN,TOTAL 0.8 MG/DL (0.1-1.0); TOTAL PROTEIN 5.9 GM/DL (6.4-8.2)
[2020-10-09] MEDS ORDERED: AMIO200T6 PO (08:56)
[2020-10-09] MEDS ORDERED: METO-333 PO (08:56)
[2020-10-09] MEDS ORDERED: RIVA20TA PO (08:56)
[2020-10-09] MEDS ORDERED: CLOPIDOGREL 75 MG (PLAVIX) TABLET PO SCH (09:00)
[2020-10-09] MEDS ORDERED: AMIODARONE 200 MG (CORDARONE) TAB PO SCH (09:00)
--- NOTE | 2020-10-09 09:00 | Discharge Inst-Simple/Standard ---
Discharge Inst-Standard Reconcile Patient Problems Problems Reviewed?: Yes Discharge Medications New, Converted or Re-Newed RX: Transmitted to Pharmacy Patient Instructions/Follow Up Plan of Care/Instructions/FU: check bp and heart rate before taking the metoprolol - if systolic blood pressure is less than 90, call physician for instructions on how to proceed with medication administration Activity as Tolerated: Yes Discharge Diet: Regular Diet Health Concerns: atrial fibrillation Return to The Hospital For: any concern for worsening heart rate, low blood pressure that does not improve with increase oral fluid intake, or uncontrolled chest pain or lifethreatening illness or injury Medication List: Active Scripts Active Metoprolol Tartrate 25 Mg Tablet 25 Mg PO BID Amiodarone HCl 200 Mg Tablet 400 Mg PO BID Xarelto (Rivaroxaban) 20 Mg Tablet 20 Mg PO 1700 W/FOOD Reported Pantoprazole Sodium 40 Mg Tablet.dr 40 Mg PO BID LAST FILLED 04-04-2020 #180/90 DAY SUPPLY Gemfibrozil 600 Mg Tablet 600 Mg PO DAILY Dicyclomine HCl 20 Mg Tablet 10 Mg PO BID TAKES OF A 20MG TAB Levothyroxine Sodium 50 Mcg Tablet 50 Mcg PO TUE,TUE,TUE,SAT TAKES 1 & (50MG) TAB ON TUE,TUE,FR TAKES 1 TAB ON TUE,TUE,,SAT Levothyroxine Sodium 50 Mcg Tablet 75 Mcg PO ,FR TAKES 1 & (50MG) TAB ON TUE,TUE,FR TAKES 1 TAB ON TUE,TUE,,SAT Montelukast Sodium 10 Mg Tablet 10 Mg PO DAILY Clopidogrel (Clopidogrel Bisulfate) 75 Mg Tablet 75 Mg PO DAILY Albuterol Sulfate 2.5 Mg/0.5 Ml Vial.neb 2.5 Mg INH Q4H Lab results: Laboratory Tests Test 10/09/20 03:20 Range/Units White Blood Count 6.2 4.3-11.0 10^3/uL Red Blood Count 3.75 L 3.80-5.11 10^6/uL Hemoglobin 11.5 11.5-16.0 g/dL Hematocrit 35 35-52 % Mean Corpuscular Volume 94 80-99 fL Mean Corpuscular Hemoglobin 31 25-34 pg Mean Corpuscular Hemoglobin Concent 33 32-36 g/dL Red Cell Distribution Width 13.6 10.0-14.5 % Platelet Count 365 130-400 10^3/uL Mean Platelet Volume 10.5 9.0-12.2 fL Immature Granulocyte % (Auto) 1 % Neutrophils (%) (Auto) 44 42-75 % Lymphocytes (%) (Auto) 40 12-44 % Monocytes (%) (Auto) 10 0-12 % Eosinophils (%) (Auto) 4 0-10 % Basophils (%) (Auto) 1 0-10 % Neutrophils # (Auto) 2.8 1.8-7.8 10^3/uL Lymphocytes # (Auto) 2.5 1.0-4.0 10^3/uL Monocytes # (Auto) 0.6 0.0-1.0 10^3/uL Eosinophils # (Auto) 0.3 0.0-0.3 10^3/uL Basophils # (Auto) 0.1 0.0-0.1 10^3/uL Immature Granulocyte # (Auto) 0.1 0.0-0.1 10^3/uL Sodium Level 141 135-145 MMOL/L Potassium Level 4.7 3.6-5.0 MMOL/L Chloride Level 109 H 98-107 MMOL/L Carbon Dioxide Level 19 L 21-32 MMOL/L Anion Gap 13 5-14 MMOL/L Blood Urea Nitrogen 15 7-18 MG/DL Creatinine 1.00 0.60-1.30 MG/DL Estimat Glomerular Filtration Rate 53 BUN/Creatinine Ratio 15 Glucose Level 95 70-105 MG/DL Calcium Level 8.8 8.5-10.1 MG/DL Phosphorus Level 3.8 2.3-4.7 MG/DL Magnesium Level 2.1 1.6-2.4 MG/DL Total Bilirubin 0.8 0.1-1.0 MG/DL Direct Bilirubin 0.2 0.0-0.3 MG/DL Indirect Bilirubin 0.6 MG/DL Aspartate Amino Transf (AST/SGOT) 47 H 5-34 U/L Alanine Aminotransferase (ALT/SGPT) 96 H 0-55 U/L Alkaline Phosphatase 58 40-136 U/L Total Protein 5.9 L 6.4-8.2 GM/DL Albumin 3.4 3.2-4.5 GM/DL My orders: Orders - SONNY TAO MD Metoprolol Tartrate (Ir) Tab (Lopressor (10/08/20 11:12) Magnesium (10/09/20 03:00) Phosphorus (10/09/20 03:00) Chest 1 View, Ap/Pa Only (10/09/20 03:00) Liver Panel (10/09/20 08:34) Attending Discharge Inpt/Inobs (10/09/20 08:52) SONNY TAO MD Oct 09, 2020 09:00
--- NOTE | 2020-10-09 09:02 | Discharge Summary ---
Diagnosis/Chief Complaint Date of Admission Oct 07, 2020 at 22:43 Date of Discharge Discharge Date: Oct 09, 2020 Discharge Time: 1030 Discharge Summary Discharge Physical Examination Allergies: Coded Allergies: Diphenoxylate HCl (Verified Adverse Reaction, Mild, Vomiting, 11/30/11) Iodinated Contrast Media (Verified Adverse Reaction, Mild, 11/05/11) atropine sulfate (Verified Adverse Reaction, Mild, Vomiting, 11/30/11) clarithromycin (Verified Adverse Reaction, Mild, 11/05/11) doxycycline (Verified Adverse Reaction, Mild, N/V, 11/05/11) niacin (Verified Adverse Reaction, Mild, rash, 11/05/11) promethazine HCl (Unverified Adverse Reaction, Unknown, MADE HER CRAZY , 05/03/17) Vitals & I&Os Vital Signs Date Time Temp Pulse Resp B/P (MAP) Pulse Ox O2 Delivery O2 Flow Rate FiO2 10/09/20 08:00 86 12 136/68 97 Room Air 10/09/20 07:16 36.5 Hospital Course Pending Labs Laboratory Tests 10/09/20 03:20: White Blood Count 6.2, Red Blood Count 3.75, Hemoglobin 11.5, Hematocrit 35, Mean Corpuscular Volume 94, Mean Corpuscular Hemoglobin 31, Mean Corpuscular Hemoglobin Concent 33, Red Cell Distribution Width 13.6, Platelet Count 365, Mean Platelet Volume 10.5, Immature Granulocyte % (Auto) 1, Neutrophils (%) (Auto) 44, Lymphocytes (%) (Auto) 40, Monocytes (%) (Auto) 10, Eosinophils (%) (Auto) 4, Basophils (%) (Auto) 1, Neutrophils # (Auto) 2.8, Lymphocytes # (Auto) 2.5, Monocytes # (Auto) 0.6, Eosinophils # (Auto) 0.3, Basophils # (Auto) 0.1, Immature Granulocyte # (Auto) 0.1, Sodium Level 141, Potassium Level 4.7, Chloride Level 109, Carbon Dioxide Level 19, Anion Gap 13, Blood Urea Nitrogen 15, Creatinine 1.00, Estimat Glomerular Filtration Rate 53, BUN/Creatinine Ratio 15, Glucose Level 95, Calcium Level 8.8, Phosphorus Level 3.8, Magnesium Level 2.1, Total Bilirubin 0.8, Direct Bilirubin 0.2, Indirect Bilirubin 0.6, Aspartate Amino Transf (AST/SGOT) 47, Alanine Aminotransferase (ALT/SGPT) 96, Alkaline Phosphatase 58, Total Protein 5.9, Albumin 3.4 Discharge Instructions to patient/family Please see electronic discharge instructions given to patient. Discharge Medications Reviewed and agree with Discharge Medication list on patient's Discharge Instruction sheet Clinical Quality Measures AMI/AHF: ASA po Prior to arrival: No DVT/VTE Risk/Contraindication: Risk Factor Score Per Nursin RFS Level Per Nursing on Admit: 4+=Very High SONNY TAO MD Oct 09, 2020 09:02
--- NOTE | 2020-10-09 09:51 | Diagnostic Imaging Report ---
INDICATION: Right groin pain post catheterization. TECHNIQUE: Right groin arterial Doppler study performed in the routine fashion with color flow Doppler and waveform analysis. FINDINGS: Common femoral artery and profunda femoris artery and proximal SFA are patent. Common femoral vein is patent with no evidence of AV fistula. There is no evidence of well-defined hematoma or pseudoaneurysm. IMPRESSION: Negative right groin arterial Doppler study. Dictated by: Dictated on workstation # [id number]
--- NOTE | 2020-10-09 10:57 | NUR ---
Discharge instructions reviewed with patient and primary stitcher utility, daughter Florence (via phone). Florence will peanut picker patient later in the afternoon. No questions regarding discharge instructions at this time.
[2020-10-09 14:37] VITALS: BP 111/52
== END 2020-10-09 13:04 | disposition home or self-care (01) | DRG 282 ==
LOC: EDUNIT# 21:37 → ER 21:39 → CSD 22:43
PROVIDERS: ADMIT Family Medicine; ATTEND Family Medicine
DX: I48.91 Unspecified atrial fibrillation (principal); I21.4 Non-ST elevation (NSTEMI) myocardial infarction; I25.10 Atherosclerotic heart disease of native coronary artery without angina pectoris; E78.00 Pure hypercholesterolemia, unspecified; E78.5 Hyperlipidemia, unspecified; I95.9 Hypotension, unspecified; E89.0 Postprocedural hypothyroidism; F41.9 Anxiety disorder, unspecified; Z95.5 Presence of coronary angioplasty implant and graft; Z79.02 Long term (current) use of antithrombotics/antiplatelets; Z79.01 Long term (current) use of anticoagulants; Z85.038 Personal history of other malignant neoplasm of large intestine; Z90.49 Acquired absence of other specified parts of digestive tract; Z90.710 Acquired absence of both cervix and uterus
CPT/HCPCS: 36415; 71045; 80048; 80053; 80061; 80076; 83735; 83874; 84100; 84484; 85025; 85610; 85730; 87081; 93005; 93041; 93926

== ENCOUNTER 2021-04-22 08:01 | Day surgery (SDC) | payer MEDICARE, OTHER ==
[2021-04-22] VITALS (11 sets, daily range): BP systolic 99–177; BP diastolic 58–80
[~2021-04-22] VITALS: Ht 157 cm; Wt 53.6 kg
[~2021-04-22 08:01] MED LIST changes: +ALB0.5V INH; +AMIO200T6 PO; +DICY20TA10 PO; +GEMF600T88 PO; +LEVO50TA6 PO; +METO-333 PO; +MONT10TA32 PO; +PANT40TA52 PO
[2021-04-22] MEDS ORDERED: NITROGLYCERIN 0.4 MG SL TABS BTL 25'S SL ONE (08:16)
[2021-04-22] MEDS ORDERED: ASPIRIN 81 MG CHEW (CHILDREN'S ASA) ONE (08:17)
[2021-04-22] MEDS ORDERED: NITROGLYCERIN 0.4 MG SL TABS BTL 25'S SL PRN ×2 (08:30→11:00)
[2021-04-22] MEDS ORDERED: ASPIRIN 81 MG CHEW (CHILDREN'S ASA) PO ONE (08:30)
[2021-04-22 08:32] LABS: ALBUMIN 4.4 GM/DL (3.2-4.5)
[2021-04-22 08:33] LABS: POTASSIUM 4.6 MMOL/L (3.6-5.0)
[2021-04-22 08:34] LABS: CALCIUM 9.6 MG/DL (8.5-10.1)
--- NOTE | 2021-04-22 08:35 | ED Chest Pain ---
General Chief Complaint: Chest Pain Stated Complaint: CP Nursing Triage Note: PT AMB TO ROOM 5 PT [facility] STARTED AT 0500 10/10 THIS AM, PT STATES HAS TAKEN 2 NITRO AND PAIN IS BETTER RATES 05/07 Nursing Sepsis Screen: No Definite Risk Source: patient Exam Limitations: no limitations History of Present Illness Date Seen by Provider: April 22, 2021 Time Seen by Provider: 08:13 Initial Comments This 85-year-old woman with atrial fibrillation and coronary artery disease presents to the emergency room by private vehicle with complaints of chest pain that started at 0530 this morning. She states that the pain feels similar to pain she experienced with her NSTEMI last September. She has history of stent placement and is anticoagulated with Xarelto. She also takes Plavix. Dr. Ruelas is her primary leasing representative. The only associated symptoms she describes is a numbness in her feet that started around the same time as the pain. She rates the pain as 9 or 10 at its most severe and presently at a 4 or 5. She took 2 nitroglycerin prior to arrival. There is no ST elevation on her EKG. She also describes history of hiatal hernia and she does have some mild epigastric tenderness. She states this pain feels different than her hiatal hernia pain. Pain is in the central lower sternal area. Allergies and Home Medications Allergies Coded Allergies: Diphenoxylate HCl (Verified Adverse Reaction, Mild, Vomiting, 11/30/11) Iodinated Contrast Media (Verified Adverse Reaction, Mild, 11/05/11) atropine sulfate (Verified Adverse Reaction, Mild, Vomiting, 11/30/11) clarithromycin (Verified Adverse Reaction, Mild, 11/05/11) doxycycline (Verified Adverse Reaction, Mild, N/V, 11/05/11) niacin (Verified Adverse Reaction, Mild, rash, 11/05/11) promethazine HCl (Unverified Adverse Reaction, Unknown, MADE HER CRAZY , 05/03/17) Home Medications Albuterol Sulfate 2.5 Mg/0.5 Ml Vial.neb, 2.5 MG INH Q4H, (Reported) Amiodarone HCl 200 Mg Tablet, 400 MG PO BID Prescribed by: SONNY PERLA on 10/09/20 0856 Clopidogrel Bisulfate 75 Mg Tablet, 75 MG PO DAILY, (Reported) Dicyclomine HCl 20 Mg Tablet, 10 MG PO BID, (Reported) TAKES OF A 20MG TAB Gemfibrozil 600 Mg Tablet, 600 MG PO DAILY, (Reported) Levothyroxine Sodium 50 Mcg Tablet, 75 MCG PO ,FR, (Reported) TAKES 1 & (50MG) TAB ON TUE,TUE,FR TAKES 1 TAB ON SUN,E,THUR,SAT Levothyroxine Sodium 50 Mcg Tablet, 50 MCG PO TUE,TUE,TUE,SAT, (Reported) TAKES 1 & (50MG) TAB ON TUE,TUE,FR TAKES 1 TAB ON SUN,E,UR,SAT Metoprolol Tartrate 25 Mg Tablet, 25 MG PO BID Prescribed by: SONNY PERLA on 10/09/20855 Montelukast Sodium 10 Mg Tablet, 10 MG PO DAILY, (Reported) Pantoprazole Sodium 40 Mg Tablet.dr, 40 MG PO BID, (Reported) LAST FILLED 04-04-2020 #180/90 DAY SUPPLY Rivaroxaban 20 Mg Tablet, 20 MG PO 1700 W/FOOD Prescribed by: SONNY PERLA on 10/09/20 08 Patient Home Medication List Home Medication List Reviewed: Yes Review of Systems Review of Systems Constitutional: no symptoms reported EENTM: No Symptoms Reported Respiratory: No Symptoms Reported Cardiovascular: See HPI Gastrointestinal: See HPI Genitourinary: No Symptoms Reported Musculoskeletal: no symptoms reported Skin: no symptoms reported Psychiatric/Neurological: See HPI Endocrine: No Symptoms Reported Hematologic/Lymphatic: No Symptoms Reported Past Jcvdejy-Pnckhp-Ehrdxp Hx Past Med/Social Hx: Reviewed and Corrections made Patient Social History Alcohol Use: Denies Use Smoking Status: Never a Smoker 2nd Hand Smoke Exposure: No Recent Infectious Disease Expo: No Recent Hopitalizations: No Immunizations Up To Date Date of Pneumonia Vaccine: Aug 04, 2017 Date of Influenza Vaccine: Aug 28, 2020 Past Medical History Surgeries: Yes (hystercectomy, colon resections, shoulder and neck surg) Abdominal, Coronary Stent, Hysterectomy, Orthopedic, Thyroidectomy Respiratory: No Cardiac: Yes Atrial Fibrillation, High Cholesterol Neurological: No : No Reproductive Disorders: No Genitourinary: No Gastrointestinal: Yes Pancreatitis Musculoskeletal: No Endocrine: Yes Hypothyroidsim Cancer: Yes Colon Psychosocial: No Integumentary: No Blood Disorders: No Family Medical History Hypertension Physical Exam Vital Signs Vital Signs - First Documented 04/22/21 08:04 Temp 36.2 Pulse 66 Resp 12 B/P (MAP) 157/83 (107) Pulse Ox 97 O2 Delivery Room Air Capillary Refill : Less Than 3 Seconds Height, Weight, BMI Height: '" Weight: lbs. oz. kg; 21.00 BMI Method:Stated General Appearance: No Apparent Distress, Mild Distress, Thin HEENT: Normal ENT Inspection Neck: Normal Inspection; No JVD Respiratory: Chest Non Tender, Lungs Clear, Normal Breath Sounds, No Accessory Muscle Use, No Respiratory Distress Cardiovascular: Regular Rate, Rhythm, No Edema, No Murmur Gastrointestinal: Normal Bowel Sounds, Soft, Tenderness (Mild in the epigastrium) Extremity: Normal Inspection, Non Tender, No Pedal Edema Neurologic/Psychiatric: Alert, Oriented x3, No Motor/Sensory Deficits, therapeutic dietitian II-XII Norm as Tested, Other (Seems mildly anxious) Skin: Normal Color, Warm/Dry Progress/Results/Core Measures Results/Orders Lab Results Laboratory Tests Test 04/22/21 08:13 Range/Units White Blood Count 4.8 4.3-11.0 10^3/uL Red Blood Count 4.44 3.80-5.11 10^6/uL Hemoglobin 14.7 11.5-16.0 g/dL Hematocrit 47 35-52 % Mean Corpuscular Volume 105 H 80-99 fL Mean Corpuscular Hemoglobin 33 25-34 pg Mean Corpuscular Hemoglobin Concent 32 32-36 g/dL Red Cell Distribution Width 13.4 10.0-14.5 % Platelet Count 239 130-400 10^3/uL Mean Platelet Volume 10.9 9.0-12.2 fL Immature Granulocyte % (Auto) 2 % Neutrophils (%) (Auto) 54 42-75 % Lymphocytes (%) (Auto) 28 12-44 % Monocytes (%) (Auto) 13 H 0-12 % Eosinophils (%) (Auto) 2 0-10 % Basophils (%) (Auto) 2 0-10 % Neutrophils # (Auto) 2.6 1.8-7.8 10^3/uL Lymphocytes # (Auto) 1.4 1.0-4.0 10^3/uL Monocytes # (Auto) 0.6 0.0-1.0 10^3/uL Eosinophils # (Auto) 0.1 0.0-0.3 10^3/uL Basophils # (Auto) 0.1 0.0-0.1 10^3/uL Immature Granulocyte # (Auto) 0.1 0.0-0.1 10^3/uL Prothrombin Time 29.9 H 12.2-14.7 SEC INR Comment 2.8 H 0.8-1.4 Activated Partial Thromboplast Time 43 H 24-35 SEC Sodium Level 141 135-145 MMOL/L Potassium Level 4.6 3.6-5.0 MMOL/L Chloride Level 103 98-107 MMOL/L Carbon Dioxide Level 26 21-32 MMOL/L Anion Gap 12 5-14 MMOL/L Blood Urea Nitrogen 16 7-18 MG/DL Creatinine 1.29 0.60-1.30 MG/DL Estimat Glomerular Filtration Rate 39 BUN/Creatinine Ratio 12 Glucose Level 104 70-105 MG/DL Calcium Level 9.6 8.5-10.1 MG/DL Corrected Calcium 9.3 8.5-10.1 MG/DL Magnesium Level 2.3 1.6-2.4 MG/DL Total Bilirubin 0.8 0.1-1.0 MG/DL Aspartate Amino Transf (AST/SGOT) 39 H 5-34 U/L Alanine Aminotransferase (ALT/SGPT) 33 0-55 U/L Alkaline Phosphatase 43 40-136 U/L Myoglobin 40.1 10.0-92.0 NG/ML Troponin I < 0.028 <0.028 NG/ML Total Protein 7.0 6.4-8.2 GM/DL Albumin 4.4 3.2-4.5 GM/DL Lipase 19 8-78 U/L Smear Scan YES My Orders Orders - VERA HAIDER MD Cbc With Automated Diff (04/22/21 08:14) Magnesium (04/22/21 08:14) Chest 1 View, Ap/Pa Only (04/22/21 08:14) Ekg Tracing (04/22/21 08:14) Comprehensive Metabolic Panel (04/22/21 08:14) Myoglobin Serum (04/22/21 08:14) Protime With Inr (04/22/21 08:14) Partial Thromboplastin Time (04/22/21 08:14) O2 (04/22/21 08:14) Monitor-Rhythm Ecg Trace Only (04/22/21 08:14) Lipid Panel (04/23/21 06:00) Ed Iv/Invasive Line Start (04/22/21 08:14) Troponin I (04/22/21 08:14) Nitroglycerin 0.4 Mg Btl 25's (Nitrostat (04/22/21 08:30) Aspirin Chewable Tablet (Baby Aspirin Ch (04/22/21 08:30) Nitroglycerin 0.4 Mg Btl 25's (Nitrostat (04/22/21 08:16) Aspirin Chewable Tablet (Baby Aspirin Ch (04/22/21 08:17) Lipase (04/22/21 08:36) Famotidine Injection (Pepcid Injection) (04/22/21 09:30) Ondansetron Injection (Zofran Injectio (04/22/21 09:30) Lidocaine 2% Viscous 15 Ml (Xylocaine Vi (04/22/21 09:30) Antacid Suspension (Mylanta Suspension (04/22/21 09:30) Medications Given in ED Current Medications Medications Dose Ordered Sig/Yvonne Route Start Time Stop Time Status Last Admin Dose Admin Aspirin 324 mg ONCE ONCE PO 04/22/21 08:30 04/22/21 08:31 DC 04/22/21 08:26 324 MG Famotidine 20 mg ONCE ONCE IVP 04/22/21 09:30 04/22/21 09:31 DC 04/22/21 09:34 20 MG Nitroglycerin 0.4 mg UD PRN SL 04/22/21 08:30 04/22/21 08:26 0.4 MG Ondansetron HCl 4 mg ONCE ONCE IVP 04/22/21 09:30 04/22/21 09:31 DC 04/22/21 09:33 4 MG Vital Signs/I&O 04/22/21 04/22/21 08:04 08:04 Temp 36.2 Pulse 66 Resp 12 B/P (MAP) 157/83 (107) Pulse Ox 97 O2 Delivery Room Air Room Air Blood Pressure Mean: 107 Progress Progress Note #1: Time: 08:33 Progress Note Patient seen and examined. No STEMI noted on the EKG. Labs and x-ray are pending. A dose of nitroglycerin will be administered along with aspirin. If nitroglycerin is not effective in alleviating her pain, we will try a GI cocktail. Review of chart also notes a history of pancreatitis. Progress Note #2: Time: 09:39 Progress Note GI cocktail with Pepcid and Zofran have been ordered as patient still had some residual pain after the 3 doses of nitroglycerin. However, pain resolved prior to giving the GI cocktail. We will hold off on GI cocktail unless her pain returns. She was given her morning dose of Plavix from her home supply in the ER. Initial ECG Impression Date: April 22, 2021 Initial ECG Impression Time: 08:04 Initial ECG Rate: 61 Initial ECG Rhythm: Normal Sinus Initial ECG Intervals: Normal Initial ECG Impression: Normal Comment Sinus rhythm with no ST elevation or depression. Low voltage in frontal leads. QTc 484. No axis deviation. Diagnostic Imaging Diagonstic Imaging: Xray Plain Films/CT/US/NM/MRI: chest Comments Chest x-ray viewed by me and report reviewed. See report below: NAME: STEPHEN JOHNSON MED REC#: [id number] PT STATUS: REG ER : 1935 PHYSICIAN: VERA HAIDER MD ADMIT DATE: 04/22/21/ER Draft Date of Exam:04/22/21 CHEST 1 VIEW, AP/PA ONLY Clinical indication: Patient with chest pain. Exam: Portable chest x-ray upright view. Comparisons: Chest x-ray dated 10/09/2020. Findings: Lungs/pleura: Suspected minimal bibasilar atelectasis. Otherwise, lungs are clear There is no pneumothorax. There is no pleural effusion. Mediastinum: Unremarkable. Pulmonary vasculature: Unremarkable. Heart: Unremarkable. Bones/extrathoracic soft tissue: Again seen anterior cervical disk fusion involving the lower cervical spine. Impression: Suspected minimal bibasilar atelectasis. There is no radiographic evidence of acute cardiopulmonary process. Dictated on workstation # [id number] Dict: 04/22/21 0839 Trans: 04/22/21 0842 [place] [id number] Interpreted by: KARLEY HANNON MD Departure Communication (Admissions) Time/Spoke to Admitting Phy: 09:31 Dr. Perla Time/Spoke to Consulting Phy: 09:15 Dr. Ruelas Impression Primary Impression: Chest pain Qualified Codes: R07.9 - Chest pain, unspecified Additional Impressions: Hiatal hernia Coronary artery disease Qualified Codes: I25.10 - Atherosclerotic heart disease of [place] coronary artery without angina pectoris Numbness and tingling of both feet Disposition: ADMITTED INPATIENT Condition: Improved Admissions Decision to Admit Reason: Admit from ER (General) Decision to Admit/Date: April 22, 2021 Time/Decision to Admit Time: 09:15 Departure-Patient Inst. Referrals: SONNY PERLA MD (PCP/Family) Primary Care Physician Copy Copies To 1: JOI RUELAS MD, JOSHUA T MD April 22, 2021 08:35
[2021-04-22 08:37] LABS: BASOPHILS # (AUTO) 0.1 10^3/uL (0.0-0.1); BASOPHILS % (AUTO) 2 % (0-10); BILIRUBIN,TOTAL 0.8 MG/DL (0.1-1.0); EOSINOPHILS # (AUTO) 0.1 10^3/uL (0.0-0.3); EOSINOPHILS % (AUTO) 2 % (0-10); HEMATOCRIT 47 % (35-52); HEMOGLOBIN 14.7 g/dL (11.5-16.0); LYMPHOCYTES # (AUTO) 1.4 10^3/uL (1.0-4.0); LYMPHOCYTES % (AUTO) 28 % (12-44); MEAN CORPUSCULAR HEMOGLOBIN 33 pg (25-34); MEAN CORPUSCULAR HGB CONC 32 g/dL (32-36); MEAN CORPUSCULAR VOLUME 105 fL (80-99); MEAN PLATELET VOLUME 10.9 fL (9.0-12.2); MONOCYTES # (AUTO) 0.6 10^3/uL (0.0-1.0); MONOCYTES % (AUTO) 13 % (0-12); NEUTROPHILS # (AUTO) 2.6 10^3/uL (1.8-7.8); NEUTROPHILS % (AUTO) 54 % (42-75); PLATELET COUNT 239 10^3/uL (130-400); WHITE BLOOD COUNT 4.8 10^3/uL (4.3-11.0)
[2021-04-22 08:39] LABS: CREATININE SERUM 1.29 MG/DL (0.60-1.30)
[2021-04-22 08:40] LABS: INR 2.8 (0.8-1.4); PROTHROMBIN TIME PATIENT 29.9 SEC (12.2-14.7)
[2021-04-22 08:41] LABS: MAGNESIUM 2.3 MG/DL (1.6-2.4)
--- NOTE | 2021-04-22 08:43 | Diagnostic Imaging Report ---
Clinical indication: Patient with chest pain. Exam: Portable chest x-ray upright view. Comparisons: Chest x-ray dated 10/09/2020. Findings: Lungs/pleura: Suspected minimal bibasilar atelectasis. Otherwise, lungs are clear There is no pneumothorax. There is no pleural effusion. Mediastinum: Unremarkable. Pulmonary vasculature: Unremarkable. Heart: Unremarkable. Bones/extrathoracic soft tissue: Again seen anterior cervical disk fusion involving the lower cervical spine. Impression: Suspected minimal bibasilar atelectasis. There is no radiographic evidence of acute cardiopulmonary process. Dictated by: Dictated on workstation # [id number]
[2021-04-22 08:56] LABS: SMEAR SCAN COMMENT YES
[2021-04-22] MEDS ORDERED: FAMOTIDINE 20MG/2ML IV (PEPCID) IVP ONE (09:30)
[2021-04-22] MEDS ORDERED: ONDANSETRON 4 MG/2 ML (SDV) Z0FRAN IVP ONE (09:30)
[2021-04-22] MEDS ORDERED: LIDOCAINE 2% VISCOUS 15 ML UDC PO ONE (09:30)
[2021-04-22] MEDS ORDERED: ANTACID SUSP 30 ML UDC (MYLANTA) PO ONE (09:30)
--- NOTE | 2021-04-22 10:57 | Consultation-Cardiology ---
HPI-Cardiology Cardiology Consultation Date of Consultation 04/22/21 Date of Admission Time Seen by Provider: 10:48 Indication: Chest pain HPI Patient is an 85 y/o female with hx of CAD with stent to OM in Sep 2020, PAF, HTN. Presented to the ER with complaints of substernal and epigastric chest pain upon awakening at approx 5am this morning. Took 2 nitro at home with little rel ief and then came to ER. Was given 3rd SL NG in ER with resolution of chest pain. Denies any associated dyspnea, dizziness or lightheadedness. Reports Lopressor was stopped 2 days ago after calling into our office with complaints of bradycardia and fatigue. Reports compliance with home medications. Home Medications & Allergies Allergies: Coded Allergies: Diphenoxylate HCl (Verified Adverse Reaction, Mild, Vomiting, 11/30/11) Iodinated Contrast Media (Verified Adverse Reaction, Mild, 11/05/11) atropine sulfate (Verified Adverse Reaction, Mild, Vomiting, 11/30/11) clarithromycin (Verified Adverse Reaction, Mild, 11/05/11) doxycycline (Verified Adverse Reaction, Mild, N/V, 11/05/11) niacin (Verified Adverse Reaction, Mild, rash, 11/05/11) promethazine HCl (Unverified Adverse Reaction, Unknown, MADE HER CRAZY , 05/03/17) Home Medication List Reviewed: Yes ZIZ-Lluiuo-Rzcscm Hx Patient Social History Employed/Student: retired Recreational Drug Use: No Smoking Status: Never a Smoker 2nd Hand Smoke Exposure: No Recent Hopitalizations: No Have you traveled recently?: No Alcohol Use?: No Immunizations Up To Date Date of Pneumonia Vaccine: Aug 04, 2017 Date of Influenza Vaccine: Aug 28, 2020 Past Medical History PAF, CAD, HTN Family Medical History Significant Family History: No Pertinent Family Hx, Hypertension Family Medical Hx Noncontributory Review of Systems-General Review of Systems Constitutional: no symptoms reported, see HPI EENTM: see HPI, no symptoms reported; No blurred vision, No double vision Cardiovascular: see HPI, chest pain; No edema; Hx of Intervention; No palpitations; vascular heart diseas Gastrointestinal: see HPI Genitourinary: see HPI, dysuria Musculoskeletal: no symptoms reported Skin: no symptoms reported Psychiatric/Neurological: See HPI Reviewed Test Results Reviewed Test Results Lab Laboratory Tests 04/22/21 08:13: White Blood Count 4.8, Red Blood Count 4.44, Hemoglobin 14.7, Hematocrit 47, Mean Corpuscular Volume 105H, Mean Corpuscular Hemoglobin 33, Mean Corpuscular Hemoglobin Concent 32, Red Cell Distribution Width 13.4, Platelet Count 239, Mean Platelet Volume 10.9, Immature Granulocyte % (Auto) 2, Neutrophils (%) (Auto) 54, Lymphocytes (%) (Auto) 28, Monocytes (%) (Auto) 13H, Eosinophils (%) (Auto) 2, Basophils (%) (Auto) 2, Neutrophils # (Auto) 2.6, Lymphocytes # (Auto) 1.4, Monocytes # (Auto) 0.6, Eosinophils # (Auto) 0.1, Basophils # (Auto) 0.1, Immature Granulocyte # (Auto) 0.1, Prothrombin Time 29.9H, INR Comment 2.8H, Activated Partial Thromboplast Time 43H, Sodium Level 141, Potassium Level 4.6, Chloride Level 103, Carbon Dioxide Level 26, Anion Gap 12, Blood Urea Nitrogen 16, Creatinine 1.29, Estimat Glomerular Filtration Rate 39, BUN/Creatinine Ratio 12, Glucose Level 104, Calcium Level 9.6, Corrected Calcium 9.3, Magnesium Level 2.3, Total Bilirubin 0.8, Aspartate Amino Transf (AST/SGOT) 39H, Alanine Aminotransferase (ALT/SGPT) 33, Alkaline Phosphatase 43, Myoglobin 40.1, Troponin I < 0.028, Total Protein 7.0, Albumin 4.4, Lipase 19, Smear Scan YES ECG Impression ECG Initial ECG Rhythm: Normal Sinus Physical Exam Physical Exam Vital Signs Vital Signs - First Documented 04/22/21 08:04 Temp 36.2 Pulse 66 Resp 12 B/P (MAP) 157/83 (107) Pulse Ox 97 O2 Delivery Room Air Capillary Refill : Less Than 3 Seconds Height, Weight, BMI Height: '" Weight: lbs. oz. kg; 21.90 BMI Method:Stated General Appearance: No Apparent Distress, Mild Distress, Thin HEENT: Normal ENT Inspection Neck: Normal Inspection; No JVD Respiratory: Chest Non Tender, Lungs Clear, Normal Breath Sounds, No Accessory Muscle Use, No Respiratory Distress Cardiovascular: Regular Rate, Rhythm, No Edema, No Murmur Gastrointestinal: Normal Bowel Sounds, Soft, Tenderness (Mild in the epigastrium) Extremity: Normal Inspection, Non Tender, No Pedal Edema Neurologic/Psychiatric: Alert, Oriented x3, No Motor/Sensory Deficits, mangle tender cloth II- XII Norm as Tested, Other (Seems mildly anxious) Skin: Normal Color, Warm/Dry A/P-Cardiology Admission Diagnosis Chest pain CAD PAF HTN Assessment/Plan Chest pain, nonspecific etiology, given SL nitro x 3 this morning, currently pain free. Initial troponin negative, no acute ST changes, planning for LST later today, will keep NPO PAF, was hospitalized with afib with RVR, converted to sinus. Maintaine on Xarelto, Lopressor, Amiodarone. Lopressor recently discontinued secondary to hypotension, bradycardia and fatigue Coronary artery disease, non-STEMI with stent to the OM on October 04, 2020, maintained on Xarelto and Plavix. Continue to monitor Mild dyspnea on exertion, planning for stress test Hyperlipidemia, maintained on statin, continue to monitor Hypothyroidism, managed by primary care physician History of mildly elevated LFTs Nonobstructive carotid artery stenosis, carotid ultrasound was done in May 2020. Continue to monitor Anxiety Thank you for allowing us to participate in the management of Ms. Mitchell. This is Justyna Oconnell PA-C, as a scribe for Dr. Ruelas. Patient was seen and evaluated with Justyna, feeling better Underwent stress test which showed large defect involving the lateral wall and inferolateral segment with hypokinesia Decided to proceed with cardiac catheterization which showed mild to moderate diffuse disease, patent stent Patient is severely hypertensive. I am starting lisinopril 10 mg daily Patient has stopped her Toprol due to bradycardia and hypotension. Planning for discharge tomorrow morning Clinical Quality Measures AMI/AHF: ASA po Prior to arrival: No JUSTYNA MAZARIEGOS April 22, 2021 10:57 am JOI RUELAS MD April 22, 2021 4:01 pm
[2021-04-22] MEDS ORDERED: ONDANSETRON 4 MG/2 ML (SDV) Z0FRAN IVP PRN (11:00)
[2021-04-22] MEDS ORDERED: REGADENOSON 0.4 MG/5 ML SYR (LEXISCAN) IV ONE ×2 (11:00→11:52)
[2021-04-22] MEDS ORDERED: morphine INJ 4 MG/ML 1 ML (VIAL/SYRINGE) IVP PRN (11:00)
[2021-04-22] MEDS ORDERED: CATHETER FLUSH 10 ML SYR IV PRN (11:15)
--- NOTE | 2021-04-22 14:19 | Cardiology Stress Test Report ---
Stress Test Report Date of Procedure/Referring: Date of Procedure: April 22, 2021 PCP Gina Perla MD Admitting Physician Gina Perla MD Indications: Chest pain Baseline Heart Rate: 54 Baseline Blood Pressure: Blood Pressure Systolic: 137 Blood Pressure Diastolic: 64 Baseline Vitals Vital Signs Date Time Temp Pulse Resp B/P (MAP) Pulse Ox O2 Delivery O2 Flow Rate FiO2 04/22/21 08:04 Room Air 04/22/21 08:04 36.2 66 12 157/83 (107) 97 Baseline EKG: Baseline EKG: NSR Summary After explaining the procedure to the patient, she signed a consent and then brought to the stress nuclear laboratory. Patient received 0.4 mg Lexiscan for stress test, ECG, heart rate and blood pressure were monitored continuously. Resting and stress dose of radio tracer were injected, imaging was acquired and reviewed in short axis, horizontal long axis and vertical long axis views. TID: 0.89 SSS: 23 SDS: 4 EF: 47 1. Patient tolerated Lexiscan well 2. Decreased uptake involving the whole lateral wall, inferolateral and anterolateral wall with subtle reversibility 3. Normal left ventricular size, hypokinesia at the lateral wall, EF 47% JOI HUNTER MD April 22, 2021 14:19
[2021-04-22] MEDS ORDERED: AMIO200T6 PO (14:33)
[2021-04-22] MEDS ORDERED: RIVA20TA PO (14:33)
[2021-04-22] MEDS ORDERED: CHOL10007 PO (14:34)
[2021-04-22] MEDS ORDERED: VIT1TABL26 PO (14:34)
[2021-04-22] MEDS ORDERED: MIDAZOLAM 5 MG/5 ML (VERSED) VIAL ONE (14:47)
[2021-04-22] MEDS ORDERED: LIDOCAINE 1% INJ 20 ML 20 ML VIAL ONE (14:51)
[2021-04-22] MEDS ORDERED: HEParin (CATH LAB) 2,000 ML IV ONE (14:51)
[2021-04-22] MEDS ORDERED: NS IV 1000 ML 1,000 ML ONE (14:51)
[2021-04-22] MEDS ORDERED: methylPREDNISolone 125 MG (Solu-MEDROL) VIAL ONE (15:16)
[2021-04-22] MEDS ORDERED: diphenhydrAMINE 50 MG/ML INJ (BENADRYL) ONE (15:19)
[2021-04-22] MEDS ORDERED: meTOprolol 5 MG/5 ML (LOPRESSOR) VIAL ONE (15:40)
[2021-04-22] MEDS ORDERED: lisINopril 10 MG (PRINIVIL) TABLET PO SCH (16:00)
--- NOTE | 2021-04-22 16:01 | Conscious Sedation/ASA ---
Conscious Sedation Pre-Proced Time 16:01 ASA Score 3 For ASA 3 and 4: Consider anesthesia and medical clearance. Also, for patients with a history of failed moderate sedation consider anesthesia. Airway Lungs Heart ASA score ASA 1: a normal healthy patient ASA 2: a patient with a mild systemic disease (mid diabetes, controlled hypertension, obesity x ASA 3: a patient with a severe systemic disease that limits activity (angina, COPD, prior Myocardial infarction) ASA 4: a patient with an incapacitating disease that is a constant threat to life (CHF, renal failure) ASA 5: a moribund patient not expected to survive 24 hrs. (ruptured aneurysm) ASA 6: a declared brain- patient whose organs are being harvested. For emergent operations, add the letter E after the classification Mallampati Classification Grade 3 Sedation Plan Analgesia, Amnesia, Plan communicated to team members, Discussed options with patient/fam, Discussed risks with patient/fam The patient is an appropriate candidate to undergo the planned procedure, sedation, and anesthesia. The patient immediately re-assessed prior to indication. JOI HUNTER MD April 22, 2021 4:01 pm
--- NOTE | 2021-04-22 16:04 | Cardiac Cath Report ---
Cardiac Cath Report Physician (s)/Grain Unloader (s) Physician JOI HUNTER MD Pre-Procedure Diagnosis Pre-Procedure Diagnosis: Chest pain, coronary artery disease Post-Procedure Note Procedure Start Date: April 22, 2021 Name of Procedure: Left heart catheterization Findings/Procedure Note PROCEDURE NOTE: 85-year-old lady with history of coronary artery disease, admitted with acute chest pain, had an abnormal stress test, scheduled for cardiac catheterization possible PTCA. After explaining the procedure to the patient, all pros and cons were explained, all questions were answered. The patient signed the consent and then she was placed on the cardiac catheterization laboratory. Groin was prepped SL fashion local anesthesia was used. Sheath placed in the right femoral artery. Nisha right and left catheter were used to access the coronary system. Pigtail was used to access the left ventricular cavity. Left ventriculogram was not done, pressure was measured At the end of the procedure the sheath was removed. Closure device was deployed FINDINGS: Hemodynamics LV 184/27, end-diastolic pressure of 27 Aorta 184/72 mean of 114 ANATOMY: Left Main is free of obstructive disease Left Anterior Descending has mild to moderate disease at multiple segment at the midportion nonobstructive disease Left Circumflex had patent stent in the mid circumflex artery, distally there is moderate disease diffusely Right Coronary Artery is dominant artery with mild disease diffusely 1 segment of moderate disease at the midportion nonobstructive disease LV Gram was not done, pressure was measured CONCLUSION: 1. Patent stent in the circumflex artery with mild to moderate disease at multiple segments in the LAD, circumflex and right coronary artery nonobstructive disease 2. Severe hypertension with elevated left ventricular end-diastolic pressure DISCUSSION AND RECOMMENDATION: Patient had an abnormal stress test probably due to the scar tissue from her myocardial infarction that occurred in August 2020. At this point we will continue maximizing medical therapy Anesthesia Type: Conscious Sedation Estimated blood loss (mL): 20 ml Contrast Amount: 29 ml Total Radiation Dose: 200 mGy Post-Procedure Diagnosis Post-operative diagnosis: Chest pain Coronary artery disease Hypertension Hyperlipidemia JOI HUNTER MD April 22, 2021 4:04 pm
[2021-04-22] MEDS ORDERED: LOSARTAN 25 MG (COZAAR) TAB PO NR (16:30)
[2021-04-22] MEDS ORDERED: RIVAROXABAN 20 MG TABLET (XARELTO) PO SCH (17:00)
--- NOTE | 2021-04-22 17:00 | History & Physical ---
History of Present Illness History of Present Illness Reason for visit/HPI JUAN JOSE IS AN 85 Y/O FEMALE WHO IS KNOWN TO ME FROM CLINIC. SHE PRESENTED TO THE HOSPITAL AFTER HAVING ACUTE ONSET OF CHEST PAIN EARLIER THIS MORNING. SHE HAD BEEN ON METOPROLOL AT 12.5MG BID WHICH WAS DECREASED TO ONE TIME DAILY AND THEN ENDED UP HAVING HER STOP THE METOPROLOL DUE TO SIGNIFICANT BRADYCARDIA WITH A HEART RATE IN THE 40'S AND HYPOTENSION WITH BP IN THE 110'S - 120'S/60'S. SHE WAS FEELING BETTER YESTERDAY AND NO LONGER HAD DIZZINESS. HOWEVER THIS MORNING SHE HAD THE ACUTE CHEST PAIN. HER DTR REPORTS THAT SHE HAS NOTICED HER MOM BECOMING INCREASINGLY FRAIL WITH JUAN JOSE BEING UNSURE OF HERSELF, ANXIETY INCREASING, AND WALKING A LITTLE SLOWER. Date of Admission April 22, 2021 at 09:31 Date Seen by a Provider: April 22, 2021 Time Seen by a Provider: 16:40 Attending Physician Sonny Perla MD Admitting Physician Sonny Perla MD Consult DR. HUNTER Allergies and Home Medications Allergies Coded Allergies: Diphenoxylate HCl (Verified Adverse Reaction, Mild, Vomiting, 11/30/11) Iodinated Contrast Media (Verified Adverse Reaction, Mild, 11/05/11) atropine sulfate (Verified Adverse Reaction, Mild, Vomiting, 11/30/11) clarithromycin (Verified Adverse Reaction, Mild, 11/05/11) doxycycline (Verified Adverse Reaction, Mild, N/V, 11/05/11) niacin (Verified Adverse Reaction, Mild, rash, 11/05/11) promethazine HCl (Unverified Adverse Reaction, Unknown, MADE HER CRAZY , 05/03/17) Home Medications Albuterol Sulfate 2.5 Mg/0.5 Ml Vial.neb, 2.5 MG INH Q4H, (Reported) Last Action: Held Amiodarone HCl 200 Mg Tablet, 200 MG PO BID, (Reported) Last Action: Reviewed Cholecalciferol (Vitamin D3) 25 Mcg Capsule, 25 MCG PO DAILY, (Reported) Last Action: Held Clopidogrel Bisulfate 75 Mg Tablet, 75 MG PO DAILY, (Reported) Last Action: Reviewed Dicyclomine HCl 20 Mg Tablet, 10 MG PO BID, (Reported) TAKES OF A 20MG TAB Last Action: Reviewed Gemfibrozil 600 Mg Tablet, 600 MG PO DAILY, (Reported) Last Action: Reviewed Levothyroxine Sodium 50 Mcg Tablet, 75 MCG PO TUE,,FR, (Reported) TAKES 1 & (50MG) TAB ON TUE,TUE,FR TAKES 1 TAB ON TUE,TUE,,SAT Last Action: Reviewed Levothyroxine Sodium 50 Mcg Tablet, 50 MCG PO TUE,TUE,TUE,SAT, (Reported) TAKES 1 & (50MG) TAB ON TUE,TUE,FR TAKES 1 TAB ON TUE,TUE,,SAT Last Action: Reviewed Montelukast Sodium 10 Mg Tablet, 10 MG PO DAILY, (Reported) Last Action: Continued Pantoprazole Sodium 40 Mg Tablet.dr, 40 MG PO BID, (Reported) Last Action: Reviewed Rivaroxaban 20 Mg Tablet, 20 MG PO 1700, (Reported) Last Action: Reviewed Vit A,C & E/Lutein/Minerals 1 Each Tablet, 1 EACH PO DAILY, (Reported) Last Action: Held Patient Home Medication List Home Medication List Reviewed: Yes Past [id number]-Vvvvrd Hx Past Med/Social Hx: Reviewed and Corrections made Patient Social History Marrital Status: Living Status: LIVES ALONE IN HER HOME Employed/Student: retired Alcohol Use: Denies Use Recreational Drug Use: No Smoking Status: Never a Smoker 2nd Hand Smoke Exposure: No Physical Abuse Screen: No Sexual Abuse: No Recent Foreign Travel: No Contact w/other who traveled: No Recent Hopitalizations: No Recent Infectious Disease Expo: No Immunizations Up To Date Date of Pneumonia Vaccine: Aug 04, 2017 Date of Influenza Vaccine: Aug 28, 2020 Seasonal Allergies Seasonal Allergies: Yes Past Medical History Surgeries: Abdominal, Coronary Stent, Hysterectomy, Orthopedic (2002 CERVICAL SPINE SURGERY FOR DISC BULGE), Thyroidectomy BENIGN NODULES Respiratory: Asthma Currently Using CPAP: No Currently Using BIPAP: No Cardiac: Atrial Fibrillation, Heart Attack, High Cholesterol PARALYZED VOCAL CORD : No Reproductive: No Sexually Transmitted Disease: No HIV/AIDS: No Female Reproductive Disorders: Denies Gastrointestinal: Pancreatitis Endocrine: Hypothyroidsim Loss of Vision: Denies Hearing Impairment: Hard of Hearing Cancer: Colon What Type of Treatment Did You: Surgical Intervention (LAPROSCOPIC LEFT HEMICOLECTOMY) Psychosocial: Anxiety History of Blood Disorders: No Family History Reviewed Nursing Family Hx Hypertension Review of Systems Constitutional: No chills, No fever, No malaise; weakness EENTM: hearing loss; No hoarseness, No throat pain Respiratory: No cough, No dyspnea on exertion, No short of breath Cardiovascular: chest pain, Hx of Intervention Gastrointestinal: No abdominal pain, No constipation, No diarrhea, No nausea, No vomiting Genitourinary: no symptoms reported Musculoskeletal: No muscle pain; muscle weakness Skin: no symptoms reported Psychiatric/Neurological: Anxiety; Denies Depressed, Denies Weakness All Other Systems Reviewed Negative Unless Noted: Yes Physical Exam Vital Signs Vital Signs - First Documented 04/22/21 08:04 Temp 36.2 Pulse 66 Resp 12 B/P (MAP) 157/83 (107) Pulse Ox 97 O2 Delivery Room Air Capillary Refill : Less Than 3 Seconds Height, Weight, BMI Height: '" Weight: lbs. oz. kg; 21.90 BMI Method:Stated General Appearance: WD/WN, Other (GROGGY FROM ANESTHESIA) HEENT: PERRL/EOMI, Pharynx Normal Neck: Full Range of Motion, Non Tender, Supple Respiratory: Chest Non Tender, Lungs Clear, Normal Breath Sounds, No Accessory Muscle Use, No Respiratory Distress Cardiovascular: Regular Rate, Rhythm, Normal Peripheral Pulses Gastrointestinal: Normal Bowel Sounds, No Organomegaly, No Pulsatile Mass, Non Tender, Soft Rectal: Deferred Extremity: Normal Capillary Refill, Normal Range of Motion, Non Tender, No Calf Tenderness, No Pedal Edema Neurologic/Psychiatric: Other (GROGGY, KNEW WHO THIS CERTIFIED ADDICTION COUNSELOR WAS BY MY VOICE) Skin: Normal Color, Warm/Dry Lymphatic: No Adenopathy Assessment/Plan Assessment and Plan CHEST PAIN SHORTNESS OF BREATH ATRIAL FIBRILLATION HYPERTENSIVE EPISODE ANXIETY HYPERLIPIDEMIA CORONARY ARTERY DISEASE CHEST PAIN - MILDLY ELEVATED TROPONIN - PT TAKEN TO RAIL SIGNAL MECHANIC BY DR. HUNTER- SEE HIS NOTE FOR FURTHER DETAILS, NO INTERVENTION PERFORMED AT THIS TIME. SHORTNESS OF BREATH -IMPROVED ATRIAL FIBRILLATION - XARELTO, RATE CONTROLLED WITH AMIODARONE HYPERTENSIVE EPISODE - PT STARTED ON LOSARTAN 25MG DAILY ANXIETY - PT ON PRN VALIUM HYPERLIPIDEMIA - RESTARTED GEMFIBROZIL CORONARY ARTERY DISEASE - DEFER TO DR. HUNTER Admission Diagnosis CHEST PAIN SHORTNESS OF BREATH ATRIAL FIBRILLATION HYPERTENSIVE EPISODE ANXIETY HYPERLIPIDEMIA CORONARY ARTERY DISEASE Admission Status: Observation Clinical Quality Measures AMI/AHF: ASA po Prior to arrival: SONNY Galvez MD April 22, 2021 17:00
[2021-04-22] MEDS: AMIODARONE 200 MG (CORDARONE) TAB PO SCH (20:15)
[2021-04-22] MEDS: PANTOPRAZOLE 40 MG (PROTONIX) TAB PO SCH (20:15)
[2021-04-22] MEDS: meTOprolol TARTRATE 25 MG (LOPRESSOR) TABLET PO SCH (20:15)
[2021-04-22] MEDS ORDERED: AMIODARONE 200 MG (CORDARONE) TAB PO SCH (21:00)
[2021-04-23 03:10] VITALS: BP 101/81
[2021-04-23 04:17] LABS: TRIGLYCERIDES 61 MG/DL (<150); VLDL CHOLESTEROL 12 MG/DL (5-40)
[2021-04-23 04:21] LABS: CHOLESTEROL 281 MG/DL (< 200)
[2021-04-23 04:22] LABS: HDL CHOLESTEROL 58 MG/DL (40-60)
--- NOTE | 2021-04-23 05:34 | Discharge Inst-Post CATH ---
Discharge Inst-CATH/EP Problems Reviewed?: Yes Post Cardiac Cath/EP D/C Inst Follow Up/Plan Appointment with Dr Ruelas in 2-4 weeks <b>CARDIAC CATH/EP PROCEDURE DISCHARGE INSTRUCTIONS</b> ACTIVITY * Go Home directly and rest. * Limit activity of the leg (or wrist if it was used) for 7 days including aerobics, swimming, jogging, bicycling, etc. * Restrict stair-climbing for 7 days if possible, if not, climb up with your non-cath leg, then bring together on the same step. * Avoid lifting, pushing, pulling or excessive movement of the affected extremity for 7 days. * Customary sexual activity may be resumed after 2 days-use caution not to use a position that strains or causes pain to the affected extremity. * No driving for 24 hours. * NO SMOKING. * Avoid straining for bowel movements for 7 days. * Gentle walking on level ground is allowed. * Returning to work will depend on the type of procedure and the results. Your doctor will discuss this with you. CALL YOUR DOCTOR FOR ANY OF THE FOLLOWING: *If bleeding from the puncture site occurs- Apply gentle pressure to site with clean cloth and call your doctor or EMS. * If a knot or lump forms under the skin, increases in size, or causes pain. * If bruising appears to be worsening or moving further down your leg instead of disappearing. * Temperature above 101 F. CARE OF YOUR GROIN INCISION; * Bruising or purple discoloration of the skin near the puncture site is common. * You may shower only, no bathtub bathing for 5 days. Be careful to avoid slipping as your leg may feel stiff. * If a closure device was used on your femoral artery, please see the attached guide regarding care of the device and your leg. * Leave dressing on FOR 24 hours. CARE OF YOUR WRIST INCISION; * Bruising or purple discoloration of the skin near the puncture site is common. * You may shower. * DO NOT submerge wrist. * Leave dressing on FOR 24 hours. JOI RUELAS MD April 23, 2021 05:34
[2021-04-23] MEDS ORDERED: LEVOTHYROXINE 50 MCG (LEVOTHROID) TAB PO SCH ×2 (06:30)
--- NOTE | 2021-04-23 07:34 | Cardiology Progress Note ---
Subjective Date Seen by Provider: April 23, 2021 Time Seen by Provider: 07:32 Subjective/Events-last exam Patient is laying down in bed, feeling better, complaining of orthostatic dizziness and lightheadedness, appear to be hypotensive Review of Systems General: No Chills, No Night Sweats, No Fatigue, No Malaise, No Appetite, No Other HEENT: No Head Aches, No Visual Changes, No Eye Pain, No Ear Pain, No Dysphasia, No Sinus Congestion, No Post Nasal Drip, No Sore Throat, No Other Pulmonary: No Dyspnea, No Cough, No Pleuritic Chest Pain, No Other Cardiovascular: No: Chest Pain, Palpitations, Orthopnea, Paroxysmal Noc. Dy spnea, Edema, Lt Headedness, Other Objective-Cardiology Exam Last Set of Vital Signs Vital Signs 04/23/21 03:10 Temp 36.4 Pulse 59 Resp 16 B/P (MAP) 101/81 (88) Pulse Ox 95 O2 Delivery Room Air Capillary Refill : Less Than 3 Seconds I&O Intake and Output 04/23/21 00:00 Intake Total 120 ml Output Total 450 ml Balance -330 ml Intake Oral 120 ml Output Urine Total 450 ml # Voids 2 # Bowel Movements 1 Daily Weight Change No General: Alert, Oriented X3, Cooperative HEENT: Atraumatic, PERRLA Neck: Supple, No JVD, No Thyromegaly Lungs: Clear to Auscultation, Normal Air Movement Heart: Regular Rate, Normal S1, Normal S2, No Murmurs Abdomen: Normal Bowel Sounds, Soft, No Tenderness, No Hepatosplenomegaly, No Masses Extremities: No Clubbing, No Cyanosis, No Edema, Normal Pulses, No Tenderness/Swelling Skin: No Rashes, No Breakdown, No Significant Lesion Neuro: Normal Gait, Normal Speech, Strength at 5/5 X4 Ext, Normal Tone, Se nsation Intact Psych/Mental Status: Mental Status NL, Mood NL Results Lab Laboratory Tests 04/22/21 08:13 A/P-Cardiology Admission Diagnosis Chest pain CAD PAF HTN Assessment/Plan Chest pain, nonspecific etiology, already catheterization was carried out after having an abnormal stress test showing patent artery with mild to moderate disease, abnormal stress test is probably due to the previous myocardial infarction and myocardial injury. Continue with medical therapy PAF, was hospitalized with afib with RVR, converted to sinus. Maintaine on Xarelto, Lopressor, Amiodarone. Continue to monitor Labile hypertension, was severely hypertensive during cardiac catheterization currently hypotensive with orthostatic dizziness, unable to tolerate beta- blockers due to bradycardia and hypotension, unable to tolerate GENESIS inhibitor due to cough and hypotension, unable to tolerate ARB due to hypotension. Coronary artery disease, non-STEMI with stent to the OM on October 04, 2020, wojciech ntained on Xarelto and Plavix. Continue to monitor Mild dyspnea on exertion, planning for stress test Hyperlipidemia, maintained on statin, continue to monitor Hypothyroidism, managed by primary care physician History of mildly elevated LFTs Nonobstructive carotid artery stenosis, carotid ultrasound was done in May 2020. Continue to monitor Anxiety Okay for discharge from cardiology standpoint and follow-up as an outpatient Clinical Quality Measures AMI/AHF: ASA po Prior to arrival: JOI Gaona MD April 23, 2021 07:34
[2021-04-23 07:53] VITALS: BP 110/60
[2021-04-23] MEDS: AMIODARONE 200 MG (CORDARONE) TAB PO SCH (08:47)
[2021-04-23] MEDS: PANTOPRAZOLE 40 MG (PROTONIX) TAB PO SCH (08:47)
[2021-04-23] MEDS: meTOprolol TARTRATE 25 MG (LOPRESSOR) TABLET PO SCH (08:48)
--- NOTE | 2021-04-23 08:54 | Progress Note ---
Subjective Review of Systems General: No Chills, No Night Sweats, No Fatigue, No Malaise, No Appetite, No Other HEENT: No Head Aches, No Visual Changes, No Eye Pain, No Ear Pain, No Dysphas ia, No Sinus Congestion, No Post Nasal Drip, No Sore Throat, No Other Pulmonary: No Dyspnea, No Cough, No Pleuritic Chest Pain, No Other Cardiovascular: No: Chest Pain, Palpitations, Orthopnea, Paroxysmal Noc. Dy spnea, Edema, Lt Headedness, Other All Other Systems Reviewed All Other Systems Reviewed: Yes Objective Exam Vital Signs Vital Signs - First Documented 04/22/21 08:04 Temp 36.2 Pulse 66 Resp 12 B/P (MAP) 157/83 (107) Pulse Ox 97 O2 Delivery Room Air Capillary Refill : Less Than 3 Seconds General Appearance: WD/WN, Other (GROGGY FROM ANESTHESIA) HEENT: PERRL/EOMI, Pharynx Normal Neck: Full Range of Motion, Non Tender, Supple Respiratory: Chest Non Tender, Lungs Clear, Normal Breath Sounds, No Accessory Muscle Use, No Respiratory Distress Cardiovascular: Regular Rate, Rhythm, Normal Peripheral Pulses Gastrointestinal: Normal Bowel Sounds, No Organomegaly, No Pulsatile Mass, Non Tender, Soft Rectal: Deferred Extremity: Normal Capillary Refill, Normal Range of Motion, Non Tender, No Calf Tenderness, No Pedal Edema Neurologic/Psychiatric: Other (GROGGY, KNEW WHO THIS ADOBE MAKER WAS BY MY VOICE) Skin: Normal Color, Warm/Dry Lymphatic: No Adenopathy Results Lab Laboratory Tests 04/22/21 14:20: Troponin I 0.029H 04/23/21 03:55: Triglycerides Level 61, Cholesterol Level 281H, LDL Cholesterol Direct 228H, VLDL Cholesterol 12, HDL Cholesterol 58 Assessment/Plan Assessment/Plan Admission Dx CHEST PAIN SHORTNESS OF BREATH ATRIAL FIBRILLATION HYPERTENSIVE EPISODE ANXIETY HYPERLIPIDEMIA CORONARY ARTERY DISEASE Admission Dx CHEST PAIN SHORTNESS OF BREATH ATRIAL FIBRILLATION HYPERTENSIVE EPISODE ANXIETY HYPERLIPIDEMIA CORONARY ARTERY DISEASE Clinical Quality Measures Admission Status Admission Dx CHEST PAIN SHORTNESS OF BREATH ATRIAL FIBRILLATION HYPERTENSIVE EPISODE ANXIETY HYPERLIPIDEMIA CORONARY ARTERY DISEASE AMI/AHF: ASA po Prior to arrival: No SONNY TAO MD April 23, 2021 08:54
[2021-04-23] MEDS ORDERED: CLOPIDOGREL 75 MG (PLAVIX) TABLET PO SCH ×2 (09:00)
[2021-04-23] MEDS ORDERED: ASPIRIN E.C. 81 MG (ECOTRIN) TAB PO SCH (09:00)
[2021-04-23] MEDS ORDERED: GEMFIBROZIL 600 MG (LOPID) TAB PO SCH (09:00)
[2021-04-23] MEDS ORDERED: MONTELUKAST 10 MG (SINGULAIR) TAB PO SCH (09:00)
[2021-04-23] MEDS ORDERED: LOSARTAN 25 MG (COZAAR) TAB PO SCH (09:00)
[2021-04-23] MEDS ORDERED: LOSA25TA41 PO (09:22)
[2021-04-23] MEDS ORDERED: NITR0.4T42 SL (09:24)
[2021-04-24] MEDS ORDERED: LEVOTHYROXINE 50 MCG (LEVOTHROID) TAB PO SCH (06:30)
== END 2021-04-23 11:08 | disposition home or self-care (01) ==
LOC: EDUNIT# 08:01 → ER 08:02 → CSD 09:31 → UNDOADMOB 09:31 → CATH 09:31 → UNDODISOB 04-23 11:08
PROVIDERS: ATTEND Family Medicine
DX: I25.10 Atherosclerotic heart disease of native coronary artery without angina pectoris (principal); I10 Essential (primary) hypertension; E78.5 Hyperlipidemia, unspecified; E78.00 Pure hypercholesterolemia, unspecified; E03.9 Hypothyroidism, unspecified; I48.0 Paroxysmal atrial fibrillation; F41.9 Anxiety disorder, unspecified; Z79.51 Long term (current) use of inhaled steroids; Z79.890 Hormone replacement therapy; Z79.899 Other long term (current) drug therapy
CPT/HCPCS: 71045; 78452; 80053; 80061; 83690; 83735; 83874; 84484; 85025; 85610; 85730; 93005 ×2; 93017; 93041; 93458; 96374; 96375; 99284; A9502; C1760; C1894; 36415

== ENCOUNTER 2021-04-25 21:55 | Emergency (ER) | payer MEDICARE, OTHER ==
[~2021-04-25] VITALS: Ht 157 cm; Wt 53.6 kg
[~2021-04-25 21:55] MED LIST changes: +CHOL10007 PO; +LOSA25TA41 PO; +NITR0.4T42 SL; +ONDANSETRON 4 MG/2 ML (SDV) Z0FRAN ONE; +VIT1TABL26 PO; +fentaNYL INJ 100 MCG/2 ML AMP ONE
[2021-04-25] MEDS ORDERED: fentaNYL INJ 100 MCG/2 ML AMP IVP STA ×2 (22:03→23:12)
--- NOTE | 2021-04-25 22:11 | ED General ---
General Stated Complaint: PAIN NEAR HEART CATH Source of Information: Patient, EMS History of Present Illness Date Seen by Provider: April 25, 2021 Time Seen by Provider: 21:57 Initial Comments Here with report of severe right groin pain and swelling noted earlier today and worsened throughout the day and is now severe. EMS summoned. Patient complaining of severe pain and blood pressure 100 systolic. Zofran 4 mg IV given for vomiting. IV fluid initiated by EMS. They did note large hematoma in the area of the right groin where patient had heart cath 2 days ago. Aside from nausea and vomiting in the right groin pain, patient denies complaint. Patient under the care of Dr. Ruelas for heart cath done on 04/22/2021. The heart cath procedure showed mild to moderate disease and stent to left circumflex artery but otherwise medical therapy only recommended. Timing/Duration: 24 Hours, Constant Severity: Severe Modifying Factors: improves with Immobilization; worse with Movement Associated Systoms: No Chest Pain, No Cough, No Fever/Chills; Nausea/Vomiting; No Shortness of Air; Weakness Allergies and Home Medications Allergies Coded Allergies: Diphenoxylate HCl (Verified Adverse Reaction, Mild, Vomiting, 11/30/11) Iodinated Contrast Media (Verified Adverse Reaction, Mild, 11/05/11) atropine sulfate (Verified Adverse Reaction, Mild, Vomiting, 11/30/11) clarithromycin (Verified Adverse Reaction, Mild, 11/05/11) doxycycline (Verified Adverse Reaction, Mild, N/V, 11/05/11) niacin (Verified Adverse Reaction, Mild, rash, 11/05/11) promethazine HCl (Unverified Adverse Reaction, Unknown, MADE HER CRAZY , 05/03/17) Home Medications Albuterol Sulfate 2.5 Mg/0.5 Ml Vial.neb, 2.5 MG INH Q4H, (Reported) Amiodarone HCl 200 Mg Tablet, 200 MG PO BID, (Reported) Cholecalciferol (Vitamin D3) 25 Mcg Capsule, 25 MCG PO DAILY, (Reported) Clopidogrel Bisulfate 75 Mg Tablet, 75 MG PO DAILY, (Reported) Dicyclomine HCl 20 Mg Tablet, 10 MG PO BID, (Reported) TAKES OF A 20MG TAB Gemfibrozil 600 Mg Tablet, 600 MG PO DAILY, (Reported) Levothyroxine Sodium 50 Mcg Tablet, 75 MCG PO MON,WE,FR, (Reported) TAKES 1 & (50MG) TAB ON TUE,TUE,FR TAKES 1 TAB ON TUE,TUE,,SAT Levothyroxine Sodium 50 Mcg Tablet, 50 MCG PO TUE,TUE,TUE,SAT, (Reported) TAKES 1 & (50MG) TAB ON TUE,TUE,FR TAKES 1 TAB ON TUE,TUE,,SAT Losartan Potassium 25 Mg Tablet, 25 MG PO DAILY hold if sbp is less than 115 Prescribed by: SONNY TAO on 04/23/21 09 Montelukast Sodium 10 Mg Tablet, 10 MG PO DAILY, (Reported) Nitroglycerin 0.4 Mg Tab.subl, 0.4 MG SL PRN take as needed for chest pain Prescribed by: SONNY TAO on 04/23/21923 Pantoprazole Sodium 40 Mg Tablet.dr, 40 MG PO BID, (Reported) Rivaroxaban 20 Mg Tablet, 20 MG PO 1700, (Reported) Vit A,C & E/Lutein/Minerals 1 Each Tablet, 1 EACH PO DAILY, (Reported) Patient Home Medication List Home Medication List Reviewed: Yes Review of Systems Review of Systems Constitutional: see HPI; No chills, No fever; weakness EENTM: No nose congestion, No throat pain Respiratory: No cough, No short of breath Cardiovascular: No chest pain; Hx of Intervention Gastrointestinal: No abdominal pain; nausea, vomiting Genitourinary: No dysuria, No pain : No Musculoskeletal: no symptoms reported Skin: change in color, lesions Psychiatric/Neurological: Denies Headache; Weakness Hematologic/Lymphatic: No Symptoms Reported All Other Systems Reviewed Negative Unless Noted: Yes Past Inzbmbk-Nqqxui-Iwiasl Hx Past Med/Social Hx: Reviewed Nursing Past Med/Soc Hx Patient Social History Alcohol Use: Denies Use Smoking Status: Never a Smoker 2nd Hand Smoke Exposure: No Recent Hopitalizations: No Immunizations Up To Date Date of Pneumonia Vaccine: Aug 04, 2017 Date of Influenza Vaccine: Aug 28, 2020 Seasonal Allergies Seasonal Allergies: Yes Past Medical History Surgeries: Yes (hystercectomy, colon resections, shoulder and neck surg) Abdominal, Coronary Stent, Hysterectomy, Orthopedic, Thyroidectomy Respiratory: No Currently Using CPAP: No Currently Using BIPAP: No Cardiac: Yes Atrial Fibrillation, Heart Attack, High Cholesterol Neurological: No Reproductive Disorders: No Female Reproductive Disorders: Denies Sexually Transmitted Disease: No HIV/AIDS: No Genitourinary: No Gastrointestinal: Yes Pancreatitis Musculoskeletal: No Endocrine: Yes Hypothyroidsim Loss of Vision: Denies Hearing Impairment: Hard of Hearing Cancer: Yes Colon What Type of Treatment Did You: Surgical Intervention Psychosocial: No Anxiety Integumentary: No Blood Disorders: No Family Medical History Reviewed Nursing Family Hx Hypertension Physical Exam Vital Signs Vital Signs - First Documented 04/25/21 21:55 Temp 36.0 Pulse 60 Resp 20 B/P (MAP) 107/59 (75) O2 Delivery Room Air Capillary Refill : Height, Weight, BMI Height: '" Weight: lbs. oz. kg; 21.90 BMI Method:Stated General Appearance: No Apparent Distress, WD/WN HEENT: PERRL/EOMI, Pharynx Normal Neck: Non Tender, Supple Respiratory: Lungs Clear, Normal Breath Sounds Cardiovascular: Regular Rate, Rhythm, No Murmur Gastrointestinal: Soft, Tenderness (Mid abdominal tenderness without rebound or guarding) Back: Normal Inspection, No CVA Tenderness, No Vertebral Tenderness Extremity: Swelling (20 x 20 cm hematoma to the area of the right groin that is very tense, tender), Other Neurologic/Psychiatric: Alert, Oriented x3 Skin: Normal Color, Warm/Dry Progress/Results/Core Measures Suspected Sepsis SIRS Temperature: Pulse: Respiratory Rate: Laboratory Tests 04/25/21 22:10: White Blood Count 7.5 Blood Pressure / Mean: Laboratory Tests 04/25/21 22:10: Creatinine 1.12, INR Comment 1.9H, Platelet Count 276, Total Bilirubin 0.5 Results/Orders Lab Results Laboratory Tests Test 04/25/21 22:10 Range/Units White Blood Count 7.5 4.3-11.0 10^3/uL Red Blood Count 3.06 L 3.80-5.11 10^6/uL Hemoglobin 10.3 #L 11.5-16.0 g/dL Hematocrit 30 L 35-52 % Mean Corpuscular Volume 99 80-99 fL Mean Corpuscular Hemoglobin 34 25-34 pg Mean Corpuscular Hemoglobin Concent 34 32-36 g/dL Red Cell Distribution Width 13.5 10.0-14.5 % Platelet Count 276 130-400 10^3/uL Mean Platelet Volume 11.7 9.0-12.2 fL Immature Granulocyte % (Auto) 1 % Neutrophils (%) (Auto) 60 42-75 % Lymphocytes (%) (Auto) 26 12-44 % Monocytes (%) (Auto) 12 0-12 % Eosinophils (%) (Auto) 1 0-10 % Basophils (%) (Auto) 1 0-10 % Neutrophils # (Auto) 4.5 1.8-7.8 10^3/uL Lymphocytes # (Auto) 1.9 1.0-4.0 10^3/uL Monocytes # (Auto) 0.9 0.0-1.0 10^3/uL Eosinophils # (Auto) 0.1 0.0-0.3 10^3/uL Basophils # (Auto) 0.0 0.0-0.1 10^3/uL Immature Granulocyte # (Auto) 0.1 0.0-0.1 10^3/uL Prothrombin Time 22.6 H 12.2-14.7 SEC INR Comment 1.9 H 0.8-1.4 Activated Partial Thromboplast Time 36 H 24-35 SEC Sodium Level 137 135-145 MMOL/L Potassium Level 4.8 3.6-5.0 MMOL/L Chloride Level 102 98-107 MMOL/L Carbon Dioxide Level 21 21-32 MMOL/L Anion Gap 14 5-14 MMOL/L Blood Urea Nitrogen 16 7-18 MG/DL Creatinine 1.12 0.60-1.30 MG/DL Estimat Glomerular Filtration Rate 46 BUN/Creatinine Ratio 14 Glucose Level 125 H 70-105 MG/DL Calcium Level 8.4 L 8.5-10.1 MG/DL Corrected Calcium 8.8 8.5-10.1 MG/DL Total Bilirubin 0.5 0.1-1.0 MG/DL Aspartate Amino Transf (AST/SGOT) 46 H 5-34 U/L Alanine Aminotransferase (ALT/SGPT) 31 0-55 U/L Alkaline Phosphatase 38 L 40-136 U/L Total Protein 5.3 L 6.4-8.2 GM/DL Albumin 3.5 3.2-4.5 GM/DL My Orders Orders - MARGARITO CALZADA MD Fentanyl Inj (Sublimaze Injection) (04/25/21 21:52) Ondansetron Injection (Zofran Injectio (04/25/21 21:52) Cbc With Automated Diff (04/25/21 22:03) Comprehensive Metabolic Panel (04/25/21 22:03) Protime With Inr (04/25/21 22:03) Partial Thromboplastin Time (04/25/21 22:03) Fentanyl Inj (Sublimaze Injection) (04/25/21 22:03) Ondansetron Injection (Zofran Injectio (04/25/21 22:15) Diphenhydramine Injection (Benadryl Inje (04/25/21 22:30) Methylprednisolone Sod Succ (Solu-Medrol (04/25/21 22:30) Ns Iv 1000 Ml (Sodium Chloride 0.9%) (04/25/21 22:30) Cta Aorta W Fawad Runoff W/Wo (04/25/21 22:24) Iohexol Injection (Omnipaque 350 Mg/Ml 1 (04/25/21 22:45) Received Contrast (Hold Metformin- Contr (04/25/21 22:45) Ns (Ivpb) (Sodium Chloride 0.9% Ivpb Bag (04/25/21 22:45) Red Cells Leukocytes Reduced (04/25/21 22:39) Type And Screen (04/25/21 22:39) Fentanyl Inj (Sublimaze Injection) (04/25/21 23:12) Ekg Tracing (04/25/21 23:12) Lactated Ringers (Lr 1000 Ml Iv Solution (04/26/21 00:15) Catheter(Urinary) Insert & Ass (04/26/21 00:05) Medications Given in ED Current Medications Medications Dose Ordered Sig/Yvonne Route Start Time Stop Time Status Last Admin Dose Admin Diphenhydramine HCl 25 mg ONCE ONCE IVP 04/25/21 22:30 04/25/21 22:31 DC 04/25/21 22:31 25 MG Iohexol 150 ml ONCE ONCE IV 04/25/21 22:45 04/25/21 22:46 DC 04/25/21 23:54 140 ML Lactated Ringer's 1,000 ml @ 200 mls/hr Q5H ONCE IV 04/26/21 00:15 04/26/21 05:14 04/26/21 00:08 200 MLS/HR Methylprednisolone Sodium Succinate 125 mg ONCE ONCE IVP 04/25/21 22:30 04/25/21 22:31 DC 04/25/21 22:31 125 MG Ondansetron HCl 4 mg ONCE ONCE IVP 04/25/21 22:15 04/25/21 22:16 DC 04/25/21 22:12 4 MG Sodium Chloride 100 ml ONCE ONCE IV 04/25/21 22:45 04/25/21 22:46 DC 04/25/21 23:54 80 ML Sodium Chloride 1,000 ml @ 0 mls/hr Q0M ONCE IV 04/25/21 22:30 04/25/21 22:31 DC 04/25/21 23:06 999 MLS/HR Vital Signs/I&O 04/25/21 21:55 Temp 36.0 Pulse 60 Resp 20 B/P (MAP) 107/59 (75) O2 Delivery Room Air 04/25/21 23:59 Intake Total 200 ml Balance 200 ml Capillary Refill : Progress Note : Progress Note Seen and evaluated. 9: I did discuss the case with on-call hospitality house supervisor, Dr. Morales. Concerns for pseudoaneurysm or arterial leak given the significant size of hematoma which is 22 x 22 cm. He is requesting that I call for transfer to [place] for concerns for pseudoaneurysm. We do not have ultrasound capability rapidly currently. 2210: I have initiated call to [facility] in [place], [place]. 2225: Case discussed with Dr. Wells, vascular surgeon on-call. He is recommending CT scan to verify vascular injury. Patient has contrast allergy. We will go ahead and do that here as he was unsure about excepting without further information. Benadryl 25 mg IV ordered and Solu-Medrol 125 mg IV ordered. Patient has 1 L normal saline bolus running currently as initiated by EMS. We will continue fluid resuscitation. Patient's blood pressure is 110 systolic currently with heart rate 70s to 80s. 2233: We will type and cross for 2 units as patient is becoming hypotensive. We will continue fluid resuscitation. 0045: I did rediscuss the case with Dr. Wells at [facility] in [facility]. CT scan does show findings of femoral artery leak with extravasation of contrast. Of note patient's hemoglobin was 14.7 on 04/22 and is now 10.3. She has required fluid resuscitation with 2 L of normal saline and we have initiated LR. Blood pressure has improved to 90s to 100s systolic.. She required redosing with fentanyl 50 mcg IV and is currently getting 25 mcg IV for continued pain. Dr. Wells is excepted the patient to their facility and she will go directly to the OR. Emergent transport has been called and she will go by [facility]. Findings and concerns were discussed with patient and fa ari who agree to transfer and plan. Family states patient normally has lower blood pressure although maybe not quite this low. ECG Initial ECG Impression Date: April 25, 2021 Initial ECG Impression Time: 22:15 Initial ECG Rate: 75 Initial ECG Rhythm: A Fib/Flutter Comment Atrial fibrillation with rate of 75. Artifact on rhythm causing exaggerated rate calculation. Normal axis. No evidence of ST elevation LA. Interpreted by me. Diagnostic Imaging Diagonstic Imaging: CT Plain Films/CT/US/NM/MRI: abdomen, pelvis, other Comments CT angiogram of abdomen and pelvis with right lower extremity runoff shows large right hematoma measuring up to 11.8 cm with active hemorrhage seen at the level of the proximal femoral artery. Departure Impression Primary Impression: Pseudoaneurysm of right femoral artery Disposition: XFER SHT-TRM HOSP Condition: Critical Transfer Transfer Reason: Exceeds level of care Time Spoke to Accepting Phy: 00:40 Transfer Facility: [place], [place], Dr. Wells accepting Method of Transfer: EMS Departure-Patient Inst. Referrals: SONNY TAO MD (PCP/Family) Primary Care Physician MARGARITO CALZADA MD April 25, 2021 22:11
[2021-04-25] MEDS ORDERED: ONDANSETRON 4 MG/2 ML (SDV) Z0FRAN IVP ONE (22:15)
[2021-04-25 22:25] LABS: BASOPHILS % (AUTO) 1 % (0-10); EOSINOPHILS # (AUTO) 0.1 10^3/uL (0.0-0.3); EOSINOPHILS % (AUTO) 1 % (0-10); HEMATOCRIT 30 % (35-52); HEMOGLOBIN 10.3 g/dL (11.5-16.0); LYMPHOCYTES # (AUTO) 1.9 10^3/uL (1.0-4.0); LYMPHOCYTES % (AUTO) 26 % (12-44); MEAN CORPUSCULAR HEMOGLOBIN 34 pg (25-34); MEAN CORPUSCULAR HGB CONC 34 g/dL (32-36); MEAN CORPUSCULAR VOLUME 99 fL (80-99); MEAN PLATELET VOLUME 11.7 fL (9.0-12.2); MONOCYTES # (AUTO) 0.9 10^3/uL (0.0-1.0); MONOCYTES % (AUTO) 12 % (0-12); NEUTROPHILS # (AUTO) 4.5 10^3/uL (1.8-7.8); NEUTROPHILS % (AUTO) 60 % (42-75); PLATELET COUNT 276 10^3/uL (130-400); WHITE BLOOD COUNT 7.5 10^3/uL (4.3-11.0)
[2021-04-25] MEDS ORDERED: methylPREDNISolone 125 MG (Solu-MEDROL) VIAL IVP ONE (22:30)
[2021-04-25] MEDS ORDERED: diphenhydrAMINE 50 MG/ML INJ (BENADRYL) IVP ONE (22:30)
[2021-04-25] MEDS ORDERED: NS IV 1000 ML 1,000 ML IV ONE (22:30)
[2021-04-25 22:32] LABS: INR 1.9 (0.8-1.4); PROTHROMBIN TIME PATIENT 22.6 SEC (12.2-14.7)
[2021-04-25 22:36] LABS: ALBUMIN 3.5 GM/DL (3.2-4.5); POTASSIUM 4.8 MMOL/L (3.6-5.0)
[2021-04-25 22:37] LABS: CALCIUM 8.4 MG/DL (8.5-10.1)
[2021-04-25 22:39] LABS: TOTAL PROTEIN 5.3 GM/DL (6.4-8.2)
[2021-04-25 22:40] LABS: BILIRUBIN,TOTAL 0.5 MG/DL (0.1-1.0)
[2021-04-25 22:42] LABS: CREATININE SERUM 1.12 MG/DL (0.60-1.30)
[2021-04-25] MEDS ORDERED: IOHEXOL 350 MG/ML 150 ML (OMNIPAQUE 350) VIAL IV ONE (22:45)
[2021-04-25] MEDS ORDERED: HOLD METFORMIN - RECEIVED CONTRAST 20 ML VIAL IV SCH (22:45)
[2021-04-25] MEDS ORDERED: NS 100 ML (IVPB) BAG IV ONE (22:45)
[2021-04-26] MEDS ORDERED: LACTATED RINGERS 1,000 ML IV ONE ×2 (00:15→06:16)
[2021-04-26] MEDS ORDERED: fentaNYL INJ 100 MCG/2 ML AMP IVP STA (01:17)
[2021-04-26 01:40] VITALS: BP 107/36
[2021-04-26] MEDS ORDERED: NS IV 1000 ML 1,000 ML ONE (06:16)
--- NOTE | 2021-04-26 07:03 | Diagnostic Imaging Report ---
CTA AORTA W SARA RUNOFF W/WO Technique: CTA imaging of the abdomen, pelvis and lower extremities was performed without and with IV contrast. 3-D MIP reformats are created and submitted. Automatic exposure controls were utilized to keep dose as low as reasonably achievable. Indication: Right groin hematoma status post heart catheter 3 days ago. Comparison: None available. Findings: Right lower extremity: There is a large hematoma within the proximal right thigh that has fluid fluid levels within it and measures 10 x 6 x 15 cm (transverse by AP by craniocaudal). On postcontrast imaging, there is active contrast blush within the hemorrhage arising from the superficial aspect of the right superficial femoral artery and is most likely due to a ruptured pseudoaneurysm with active bleeding. There are 2 additional sites of contrast blush more distally in the inferior aspect of the hemorrhage, although these do not have large feeding vessels. The superficial femoral artery remains patent throughout the thigh. Profunda femoris branches are normal. Popliteal artery is patent. Allowing for the contrast opacification, there appears be at least a two-vessel runoff to the level of the ankle with patent anterior and posterior tibial arteries. Left lower extremity: There is no hematoma of the left lower extremity. The common femoral, superficial femoral and popliteal arteries are all widely patent. There appears to be a three-vessel runoff to the level of the ankle. Abdomen and pelvis: Normal caliber abdominal aorta with extensive atherosclerotic plaquing. No aortic dissection. The celiac, superior mesenteric and inferior mesenteric arteries are patent. The bilateral renal arteries are patent without high-grade stenosis. Allowing for the early arterial phase of imaging, the liver has no concerning abnormality. There are few scattered cysts. Gallbladder, spleen and pancreas are normal. No adrenal mass. Kidneys enhance normally without mass, lesion or obstruction. Descending and sigmoid colon diverticulosis without diverticulitis. Postoperative changes with the bowel anastomosis in the right lower quadrant. No concerning focal osseous lesions. Impression: 1. Large hematoma in the anterior aspect of the right thigh has active hemorrhage within it, likely from a ruptured pseudoaneurysm arising from the proximal aspect of the superficial femoral artery. 2. Findings are in agreement with the preliminary report. Dictated by: Dictated on workstation # [id number]
== END 2021-04-26 01:40 | disposition short-term general hospital (02) ==
LOC: EDUNIT# 21:55 → ER 21:57
DX: I72.4 Aneurysm of artery of lower extremity (principal); R11.2 Nausea with vomiting, unspecified; I50.9 Heart failure, unspecified; I48.91 Unspecified atrial fibrillation; E78.00 Pure hypercholesterolemia, unspecified; E89.0 Postprocedural hypothyroidism; Z79.890 Hormone replacement therapy; Z79.01 Long term (current) use of anticoagulants; Z79.899 Other long term (current) drug therapy; Z95.9 Presence of cardiac and vascular implant and graft, unspecified; Z88.8 Allergy status to other drugs, medicaments and biological substances
CPT/HCPCS: 36415; 51702; 75635; 80053; 85025; 85610; 85730; 86850; 86900; 86901; 86920; 93005; 99291

== ENCOUNTER → 2021-08-13 | Outpatient (CLI) | payer MEDICARE, OTHER ==
[~2021-08-13] MED LIST changes: -ONDANSETRON 4 MG/2 ML (SDV) Z0FRAN ONE; -fentaNYL INJ 100 MCG/2 ML AMP ONE
[2021-08-13 14:26] LABS: BASOPHILS # (AUTO) 0.1 10^3/uL (0.0-0.1); BASOPHILS % (AUTO) 1 % (0-10); EOSINOPHILS # (AUTO) 0.1 10^3/uL (0.0-0.3); EOSINOPHILS % (AUTO) 2 % (0-10); HEMATOCRIT 39 % (35-52); HEMOGLOBIN 12.7 g/dL (11.5-16.0); LYMPHOCYTES # (AUTO) 1.1 X 10^3 (1.0-4.0); LYMPHOCYTES % (AUTO) 23 % (12-44); MEAN CORPUSCULAR HEMOGLOBIN 32 pg (25-34); MEAN CORPUSCULAR HGB CONC 33 g/dL (32-36); MEAN CORPUSCULAR VOLUME 97 fL (80-99); MEAN PLATELET VOLUME 10.2 fL (9.0-12.2); MONOCYTES # (AUTO) 0.6 X 10^3 (0.0-1.0); MONOCYTES % (AUTO) 12 % (0-12); NEUTROPHILS # (AUTO) 2.9 X 10^3 (1.8-7.8); NEUTROPHILS % (AUTO) 62 % (42-75); PLATELET COUNT 202 10^3/uL (130-400); WHITE BLOOD COUNT 4.7 10^3/uL (4.3-11.0)
[2021-08-13 14:43] LABS: ALBUMIN 4.3 GM/DL (3.2-4.5); BILIRUBIN,TOTAL 0.4 MG/DL (0.1-1.0); CALCIUM 9.7 MG/DL (8.5-10.1); CREATININE SERUM 1.43 MG/DL (0.60-1.30); POTASSIUM 4.3 MMOL/L (3.6-5.0); TOTAL PROTEIN 6.4 GM/DL (6.4-8.2)
== END ==
LOC: ONC 14:14
PROVIDERS: ATTEND Internal Medicine Hematology & Oncology
DX: C18.7 Malignant neoplasm of sigmoid colon (principal)
CPT/HCPCS: 80053; 82378; 85025; G0463; 99213

== ENCOUNTER 2021-11-25 11:16 | Outpatient (RCR) | payer MEDICARE, OTHER ==
[~2021-11-25 11:16] MED LIST changes: -AMIO200T6 PO; +AMIO200T65 PO; +DICY20TA PO; -DICY20TA10 PO; +MONT-40 PO; -MONT10TA32 PO
== END 2021-11-27 | disposition home or self-care (01) ==
LOC: CR 11:16
PROVIDERS: ATTEND Family Medicine
DX: Z95.5 Presence of coronary angioplasty implant and graft (principal)
CPT/HCPCS: 93798